=== PATIENT | female | born 1940 | race Hispanic/Latino ===

== ENCOUNTER 2018-03-15 19:10 | Inpatient (IN) | payer MEDICARE ==
[~2018-03-15] VITALS: Ht 152.4 cm; Wt 56.2 kg
[~2018-03-15 19:10] MED LIST: ALPR0.5T8 PO; CARV6.25 PO; CITA10TA7 PO; CYAN100099 PO; ESTR0.452 PO; FLUT15.88 NS; FOLI1TAB15 PO; GABA-531 PO; LEVO25TA9 PO; LEVO50TA4 PO; LOSA100T29 PO; MIRA50TA PO; MULT-1278 PO; NITR0.4T50 SL; OMEG-125 PO; POTA20TA12 PO; PROP1DRO OP; RANI150T7 PO; ROSU5TAB11 PO; SOLI5 PO; TRAM50TA4 PO; TRAV2.5D OU
[2018-03-15 20:01] LABS: APPEARANCE,URINE Clear (CLEAR); BILIRUBIN,URINE Negative (NEGATIVE); COLOR,URINE Yellow (YELLOW); GLUCOSE, URINE (UA) Negative (NEGATIVE); KETONES,URINE 15 mg/dL (NEGATIVE); LEUKOCYTE ESTERASE ,URINE Negative (NEGATIVE); NITRATE,URINE Negative (NEGATIVE); OCCULT BLOOD,URINE Nonhemolyzed Trace (NEGATIVE); PROTEIN,URINE POS 1+ (NEGATIVE); UROBILINOGEN,URINE 0.2 mg/dL (0.2-1.0)
[2018-03-15 20:13] LABS: BACTERIA,URINE None Seen /HPF (None Seen); RBC,URINE 0-1 /HPF (0-1); WBC,URINE 0-1 /HPF (0-1)
[2018-03-15 20:14] LABS: BASOPHILS % (AUTO) 0.3 % (0.0-5.0); EOSINOPHILS % (AUTO) 0.3 % (0.0-8.0); HEMATOCRIT 37.6 % (36-48); LYMPHOCYTES % (AUTO) 13.3 % (21.0-51.0); MEAN CORPUSCULAR HEMOGLOBIN 32.9 pg (27.0-33.0); MEAN CORPUSCULAR HGB CONC 36.3 g/dL (32.0-36.0); MEAN CORPUSCULAR VOLUME 90.6 fL (79-99); MONOCYTES % (AUTO) 6.9 % (3.0-13.0); NEUTROPHILS % (AUTO) 79.2 % (40.0-77.0); NUCLEATED RED BLOOD CELLS 0.1 % (0.0-0.19); PLATELET COUNT (AUTO) 279 K/uL (130-400); RED BLOOD CELL COUNT(AUTO) 4.15 MIL/uL (4.00-5.50); RED CELL DISTRIBUTION WIDTH 13.8 % (11.0-15.5); WHITE BLOOD COUNT (AUTO) 12.4 K/uL (4.8-10.8)
[2018-03-15] MEDS ORDERED: ONDANSETRON ODT 4 MG TAB ONE (20:14)
[2018-03-15 20:39] LABS: ALANINE AMINOTRANSFERASE 28 U/L (12-78); ALBUMIN 3.9 g/dL (3.5-5.0); AMYLASE 67 U/L (25-115); ASPARTATE AMINOTRANSFERASE 25 U/L (10-37); BILIRUBIN,TOTAL 1.8 mg/dL (0.2-1.0); CARBON DIOXIDE 27 mmol/L (21-32); CREATININE 0.7 mg/dL (0.5-1.5); GLOMERULAR FILTR. RATE CALC 86 mL/min (>60); GLUCOSE,RANDOM 118 mg/dL (70-105); SODIUM SERUM 118 mmol/L (136-145); TOTAL PROTEIN, SERUM 7.6 g/dL (6.0-8.3); UREA NITROGEN, BLOOD 8 mg/dL (7-18)
[2018-03-15 20:41] LABS: CHLORIDE 82 mmol/L (101-111); LIPASE < 50 U/L (114-286)
[2018-03-15] MEDS ORDERED: SODIUM CHLORIDE 0.9% 1000ML 1,000 ML IV ONE (20:58)
[2018-03-15 22:25] VITALS: BP 140/78
[2018-03-15] MEDS ORDERED: ONDANSETRON HCL MDV 20ML 2 MG/ML VIAL IVP PRN (23:30)
[2018-03-15] MEDS: SODIUM CHLORIDE 0.9% 1000ML 1,000 ML IV SCH (23:30)
[2018-03-16 04:09] LABS: HEMATOCRIT 39.3 % (36-48); MEAN CORPUSCULAR HEMOGLOBIN 32.2 pg (27.0-33.0); PLATELET COUNT (AUTO) 215 K/uL (130-400); RED BLOOD CELL COUNT(AUTO) 4.28 MIL/uL (4.00-5.50); RED CELL DISTRIBUTION WIDTH 14.1 % (11.0-15.5); WHITE BLOOD COUNT (AUTO) 9.3 K/uL (4.8-10.8)
[2018-03-16 04:16] VITALS: BP 119/75
[2018-03-16 05:26] LABS: ALBUMIN 3.4 g/dL (3.5-5.0); BILIRUBIN,TOTAL 1.4 mg/dL (0.2-1.0); CREATININE 0.6 mg/dL (0.5-1.5); POTASSIUM 3.9 mmol/L (3.5-5.1); TOTAL PROTEIN, SERUM 6.9 g/dL (6.0-8.3)
[2018-03-16 08:00] VITALS: BP 135/69
[2018-03-16] MEDS ORDERED: PANTOPRAZOLE SODIUM 40 MG TABLET.DR PO SCH (09:00)
[2018-03-16] MEDS: SODIUM CHLORIDE 0.9% 1000ML 1,000 ML IV SCH (09:04)
[2018-03-16 11:00] VITALS: BP 130/78
[2018-03-16 16:00] VITALS: BP 141/67
== END 2018-03-16 18:55 | disposition home or self-care (01) | DRG 641 ==
LOC: EDH 19:10 → EDHIP 21:20 → 3AH 22:03 → 3BH 22:03
PROVIDERS: ADMIT Internal Medicine Nephrology; ATTEND Internal Medicine Nephrology
DX: E87.1 Hypo-osmolality and hyponatremia (principal); K76.0 Fatty (change of) liver, not elsewhere classified; E03.9 Hypothyroidism, unspecified; E78.5 Hyperlipidemia, unspecified; M19.90 Unspecified osteoarthritis, unspecified site; I10 Essential (primary) hypertension; M81.0 Age-related osteoporosis without current pathological fracture; Z90.710 Acquired absence of both cervix and uterus; Z86.010 Personal history of colon polyps; Z88.0 Allergy status to penicillin; Z88.8 Allergy status to other drugs, medicaments and biological substances; Z82.49 Family history of ischemic heart disease and other diseases of the circulatory system; Z82.3 Family history of stroke
CPT/HCPCS: 36415; 74021; 80053; 81001; 82150; 83690; 84295; 84484; 85025; 85027; G0378; J7030

== ENCOUNTER 2018-12-02 19:40 | Inpatient (IN) | payer MEDICARE | END 2018-12-04 15:00 | disposition home or self-care (01) | LOC: EDH 19:40 → 3BH 12-03 17:44 → EDHIP 21:50 | DX: E86.0 Dehydration (principal); E87.1 Hypo-osmolality and hyponatremia ==

== ENCOUNTER 2019-09-01 19:55 | Inpatient (IN) | payer MEDICARE ==
[~2019-09-01] VITALS: Ht 154.9 cm; Wt 54.4 kg
[~2019-09-01 19:55] MED LIST changes: -CITA10TA7 PO; +FLUT15.845 NS; -FLUT15.88 NS; -LOSA100T29 PO; +LOSA100T58 PO; -ROSU5TAB11 PO; +ROSU5TAB12 PO
[2019-09-01] MEDS ORDERED: LIDOCAINE HCL 2% VISCOUS 15 ML UDCUP ONE ×2 (20:32→22:29)
[2019-09-01] MEDS ORDERED: MAG HYDROX/AL HYDROX/SIMETH ES 30 ML SUSP UDCUP ONE ×2 (20:32→22:29)
[2019-09-01 20:36] LABS: BASOPHILS % (AUTO) 0.6 % (0.0-5.0); EOSINOPHILS % (AUTO) 0.1 % (0.0-8.0); HEMATOCRIT 50.2 % (36-48); MEAN CORPUSCULAR HEMOGLOBIN 31.7 pg (27.0-33.0); MEAN CORPUSCULAR HGB CONC 33.9 g/dL (32.0-36.0); MEAN CORPUSCULAR VOLUME 93.6 fL (79-99); MONOCYTES % (AUTO) 7.2 % (3.0-13.0); NEUTROPHILS % (AUTO) 75.1 % (40.0-77.0); PLATELET COUNT (AUTO) 228 K/uL (130-400); RED BLOOD CELL COUNT(AUTO) 5.36 MIL/uL (4.00-5.50); RED CELL DISTRIBUTION WIDTH 15.3 % (11.0-15.5); WHITE BLOOD COUNT (AUTO) 11.7 K/uL (4.8-10.8)
[2019-09-01 20:50] LABS: INR 0.95 (0.85-1.15); PARTIAL THROMBOPLASTIN TIME 24.4 SEC (26.3-35.5)
[2019-09-01 20:54] LABS: CREATININE 1.1 mg/dL (0.5-1.5); POTASSIUM 4.6 mmol/L (3.5-5.1)
[2019-09-01 20:59] LABS: ALBUMIN 4.8 g/dL (3.5-5.0); BILIRUBIN,TOTAL 1.4 mg/dL (0.2-1.0); TOTAL PROTEIN, SERUM 8.9 g/dL (6.0-8.3)
[2019-09-01 21:11] LABS: B-TYPE NATRIURETIC PEPTIDE 31 pg/mL (0-100)
[2019-09-02] MEDS ORDERED: SODIUM CHLORIDE 0.9% 1000ML 1,000 ML IV ONE (01:01)
[2019-09-02] MEDS ORDERED: ACETAMINOPHEN 325 MG TAB ONE (01:25)
[2019-09-02] MEDS: SODIUM CHLORIDE 0.9% 1000ML 1,000 ML IV SCH ×2 (03:00→13:31)
[2019-09-02 04:00] VITALS: BP 146/68
[2019-09-02 05:18] LABS: POTASSIUM 4.1 mmol/L (3.5-5.1)
[2019-09-02 05:31] LABS: ALBUMIN 4.4 g/dL (3.5-5.0); BILIRUBIN,TOTAL 1.5 mg/dL (0.2-1.0); TOTAL PROTEIN, SERUM 8.5 g/dL (6.0-8.3)
[2019-09-02 05:53] LABS: HEMATOCRIT 49.4 % (36-48); MEAN CORPUSCULAR HGB CONC 34.3 g/dL (32.0-36.0); MEAN CORPUSCULAR VOLUME 93.4 fL (79-99); PLATELET COUNT (AUTO) 208 K/uL (130-400); RED BLOOD CELL COUNT(AUTO) 5.29 MIL/uL (4.00-5.50); WHITE BLOOD COUNT (AUTO) 10.1 K/uL (4.8-10.8)
[2019-09-02 07:00] VITALS: BP 135/77
[2019-09-02] MEDS ORDERED: PNEUMOCOCCAL VACCINE POLYVALENT 0.5 ML/VIAL [PPV] IM ONE (08:00)
[2019-09-02] MEDS: **HM** MYRBETRIQ 50MG PO SCH (09:00)
[2019-09-02] MEDS: PANTOPRAZOLE SODIUM 40 MG TABLET.DR PO SCH (09:13)
[2019-09-02] MEDS: ALPRAZOLAM 0.5 MG TABLET PO SCH ×3 (09:13→22:12)
[2019-09-02] MEDS: CYANOCOBALAMIN (VITAMIN B-12) 1,000 MCG TABLET PO SCH (09:13)
[2019-09-02] MEDS: CARVEDILOL 6.25 MG TABLET PO SCH ×2 (09:13→22:13)
[2019-09-02] MEDS: FOLIC ACID 1 MG TABLET PO SCH (09:14)
[2019-09-02] MEDS: ACETAMINOPHEN 325 MG TAB PO PRN (09:17)
[2019-09-02] MEDS: LEVOTHYROXINE 25 MCG TABLET PO SCH (09:29)
[2019-09-02] MEDS: ARTIFICAL TEARS SOL 15 ML OP SCH ×2 (09:29→20:38)
[2019-09-02 12:00] VITALS: BP 121/70
--- NOTE | 2019-09-02 14:00 | NUR ---
INITIAL MET W PT , PARTNER DARRYL, BROTHER AND SISTER/ PT AAO3, INDP OF ADLS, DRIVES, NO DME, HOME SAFE AND ACCESSIBLE, LIVE W PARTNER DARRYL WHO WILL PROVIDE TRANSPORT HOME; DCP IS HOME, NO NEEDS ANTICIPATED. SBO DX, STILL NPO BUT WITHOUT NGT Addendum: 09/02/19 at 2004 by BECKIE DAMON RN CM Amended: Links added.
[2019-09-02 16:00] VITALS: BP 120/67
[2019-09-02 19:35] VITALS: BP 146/63
[2019-09-02] MEDS: ONDANSETRON HCL 4 MG/2 ML VIAL IVP PRN (20:31)
[2019-09-02] MEDS: LATANOPROST 2.5 ML DROPS OU SCH (22:11)
[2019-09-02] MEDS: FLUTICASONE PROPIONATE 50MCG/SPRAY 16 GM BOTTLE EN SCH (22:12)
[2019-09-02] MEDS: GABAPENTIN 300 MG CAPSULE PO SCH (22:13)
[2019-09-03] VITALS (7 sets, daily range): BP systolic 113–146; BP diastolic 50–69
[2019-09-03] MEDS: SODIUM CHLORIDE 0.9% 1000ML 1,000 ML IV SCH ×2 (00:41→08:21)
[2019-09-03] MEDS: ACETAMINOPHEN 325 MG TAB PO PRN ×2 (00:42→14:53)
[2019-09-03 04:32] LABS: HEMATOCRIT 41.3 % (36-48); MEAN CORPUSCULAR HEMOGLOBIN 32.1 pg (27.0-33.0); MEAN CORPUSCULAR HGB CONC 34.3 g/dL (32.0-36.0); MEAN CORPUSCULAR VOLUME 93.8 fL (79-99); PLATELET COUNT (AUTO) 176 K/uL (130-400); RED CELL DISTRIBUTION WIDTH 15.1 % (11.0-15.5); WHITE BLOOD COUNT (AUTO) 4.5 K/uL (4.8-10.8)
[2019-09-03 04:47] LABS: ALBUMIN 3.3 g/dL (3.5-5.0); BILIRUBIN,TOTAL 1.5 mg/dL (0.2-1.0); CREATININE 1.2 mg/dL (0.5-1.5); POTASSIUM 3.7 mmol/L (3.5-5.1); TOTAL PROTEIN, SERUM 7.2 g/dL (6.0-8.3)
[2019-09-03 05:11] LABS: BAND NEUTROPHILS % (MANUAL) 22 % (0-2); EOSINOPHILS % (MANUAL) 1 % (1-6); LYMPHOCYTES % (MANUAL) 38 % (22-44); MAN.DIFF COMMENT-IMPRESSION MANUAL DIFFERENTIAL; MONOCYTES % (MANUAL) 6 % (2-9); PLATELET MORPHOLOGY COMMENT ADEQUATE; REACTIVE LYMPHOCYTES 2 % (0-0); SEGMENTED NEUTROPHILS % 31 % (40-70)
[2019-09-03] MEDS: LEVOTHYROXINE 25 MCG TABLET PO SCH (06:56)
[2019-09-03] MEDS: LEVOTHYROXINE 50 MCG TABLET PO SCH (08:19)
[2019-09-03] MEDS: PANTOPRAZOLE SODIUM 40 MG TABLET.DR PO SCH (08:19)
[2019-09-03] MEDS: CYANOCOBALAMIN (VITAMIN B-12) 1,000 MCG TABLET PO SCH (08:19)
[2019-09-03] MEDS: ALPRAZOLAM 0.5 MG TABLET PO SCH ×3 (08:19→20:51)
[2019-09-03] MEDS: FOLIC ACID 1 MG TABLET PO SCH (08:19)
[2019-09-03] MEDS: **HM** MYRBETRIQ 50MG PO SCH (08:20)
[2019-09-03] MEDS: CARVEDILOL 6.25 MG TABLET PO SCH ×2 (08:20→20:51)
[2019-09-03] MEDS: ARTIFICAL TEARS SOL 15 ML OP SCH ×2 (08:21→20:52)
[2019-09-03] MEDS: ONDANSETRON HCL 4 MG/2 ML VIAL IVP PRN (08:28)
[2019-09-03] MEDS: DOXYCYCLINE 100MG+NS 250ML 250 ML IV SCH (12:47)
--- NOTE | 2019-09-03 17:27 | NUR ---
INITIAL: Met w pt this afternoon to discuss dcp. Pt states that she lives alone. She is independent w ambulation and ADLs. Per pt she was driving prior to admission. Pt has at home a cane and walker if needed. Per pt if she needs any help @ hi her life partner Jhon can assist. Pt mentions she feels safe and comfortable to return home at hi. CM to continue to follow and wait for Md recommendations. Addendum: 09/04/19 at 1728 by NAVEEN MATUTE Amended: Links added.
[2019-09-03] MEDS: GABAPENTIN 300 MG CAPSULE PO SCH (20:51)
[2019-09-03] MEDS: LATANOPROST 2.5 ML DROPS OU SCH (20:52)
[2019-09-03] MEDS: FLUTICASONE PROPIONATE 50MCG/SPRAY 16 GM BOTTLE EN SCH (20:53)
[2019-09-04] MEDS: DOXYCYCLINE 100MG+NS 250ML 250 ML IV SCH ×2 (01:06→12:04)
[2019-09-04] MEDS: ACETAMINOPHEN 325 MG TAB PO PRN ×2 (01:55→08:12)
[2019-09-04 03:00] VITALS: BP 112/52
[2019-09-04] MEDS: SODIUM CHLORIDE 0.9% 1000ML 1,000 ML IV SCH (06:39)
[2019-09-04 06:40] LABS: CREATININE 0.8 mg/dL (0.5-1.5); POTASSIUM 3.6 mmol/L (3.5-5.1)
[2019-09-04 06:44] LABS: PHOSPHORUS 1.6 mg/dL (2.5-4.9)
[2019-09-04 08:00] VITALS: BP 139/67
[2019-09-04] MEDS: LEVOTHYROXINE 25 MCG TABLET PO SCH (08:09)
[2019-09-04] MEDS: PANTOPRAZOLE SODIUM 40 MG TABLET.DR PO SCH (08:10)
[2019-09-04] MEDS: CARVEDILOL 6.25 MG TABLET PO SCH ×2 (08:10→20:38)
[2019-09-04] MEDS: CYANOCOBALAMIN (VITAMIN B-12) 1,000 MCG TABLET PO SCH (08:10)
[2019-09-04] MEDS: ALPRAZOLAM 0.5 MG TABLET PO SCH ×3 (08:10→20:36)
[2019-09-04] MEDS: FOLIC ACID 1 MG TABLET PO SCH (08:10)
[2019-09-04] MEDS: ARTIFICAL TEARS SOL 15 ML OP SCH ×2 (08:11→20:35)
[2019-09-04] MEDS: **HM** MYRBETRIQ 50MG PO SCH (08:11)
[2019-09-04 09:05] LABS: ALBUMIN 2.6 g/dL (3.5-5.0); BILIRUBIN,DIRECT 0.3 mg/dL (0.0-0.3); BILIRUBIN,TOTAL 1.2 mg/dL (0.2-1.0); TOTAL PROTEIN, SERUM 6.3 g/dL (6.0-8.3)
[2019-09-04 11:00] VITALS: BP 133/67
--- NOTE | 2019-09-04 12:00 | NUR ---
DR SANTINO BELL MD REGARDING BS OF 66 WELL PAIN LEVEL OF 10 NOT COVERED BY TYLENOL. PER NEW ORDER FOR TRAMADOL 50 Q6 PRN AND D5+NS AT 70ML/HR
[2019-09-04] MEDS: TRAMADOL HCL 50 MG TABLET PO PRN ×2 (12:58→21:40)
[2019-09-04] MEDS: DEXTROSE 5 % AND 0.9 % NACL 1,000 ML IV SCH (12:59)
[2019-09-04 16:00] VITALS: BP 123/80
[2019-09-04 20:29] VITALS: BP 128/57
[2019-09-04] MEDS: FLUTICASONE PROPIONATE 50MCG/SPRAY 16 GM BOTTLE EN SCH (20:33)
[2019-09-04] MEDS: LATANOPROST 2.5 ML DROPS OU SCH (20:34)
[2019-09-04] MEDS: GABAPENTIN 300 MG CAPSULE PO SCH (20:36)
[2019-09-04 23:18] VITALS: BP 137/62
[2019-09-05] MEDS: DOXYCYCLINE 100MG+NS 250ML 250 ML IV SCH ×3 (01:00→21:44)
[2019-09-05] MEDS: TRAMADOL HCL 50 MG TABLET PO PRN ×2 (03:31→10:06)
[2019-09-05 03:42] VITALS: BP 140/62
[2019-09-05 05:06] LABS: BASOPHILS % (AUTO) 0.3 % (0.0-5.0); HEMATOCRIT 35.1 % (36-48); LYMPHOCYTES % (AUTO) 21.6 % (21.0-51.0); MEAN CORPUSCULAR HEMOGLOBIN 32.5 pg (27.0-33.0); MEAN CORPUSCULAR VOLUME 92.7 fL (79-99); MONOCYTES % (AUTO) 12.3 % (3.0-13.0); NEUTROPHILS % (AUTO) 62.8 % (40.0-77.0); NUCLEATED RED BLOOD CELLS 0.1 % (0.0-0.19); PLATELET COUNT (AUTO) 169 K/uL (130-400); RED BLOOD CELL COUNT(AUTO) 3.79 MIL/uL (4.00-5.50); RED CELL DISTRIBUTION WIDTH 14.5 % (11.0-15.5); WHITE BLOOD COUNT (AUTO) 4.8 K/uL (4.8-10.8)
[2019-09-05 05:21] LABS: ALBUMIN 2.4 g/dL (3.5-5.0); BILIRUBIN,TOTAL 0.7 mg/dL (0.2-1.0); CREATININE 0.6 mg/dL (0.5-1.5); POTASSIUM 3.4 mmol/L (3.5-5.1); TOTAL PROTEIN, SERUM 6.1 g/dL (6.0-8.3)
[2019-09-05] MEDS: DEXTROSE 5 % AND 0.9 % NACL 1,000 ML IV SCH ×2 (06:26→15:10)
[2019-09-05] MEDS ORDERED: POTASSIUM CHLORIDE 10 MEQ/TAB.SA PO SCH (07:45)
[2019-09-05] MEDS: ALPRAZOLAM 0.5 MG TABLET PO SCH ×3 (07:49→21:45)
[2019-09-05] MEDS: CYANOCOBALAMIN (VITAMIN B-12) 1,000 MCG TABLET PO SCH (07:49)
[2019-09-05] MEDS: PANTOPRAZOLE SODIUM 40 MG TABLET.DR PO SCH (07:49)
[2019-09-05] MEDS: LEVOTHYROXINE 50 MCG TABLET PO SCH (07:49)
[2019-09-05] MEDS: CARVEDILOL 6.25 MG TABLET PO SCH ×2 (07:50→21:45)
[2019-09-05] MEDS: ARTIFICAL TEARS SOL 15 ML OP SCH ×2 (07:50→21:47)
[2019-09-05] MEDS: **HM** MYRBETRIQ 50MG PO SCH (07:50)
[2019-09-05] MEDS: FOLIC ACID 1 MG TABLET PO SCH (07:50)
[2019-09-05 08:00] VITALS: BP 137/74
--- NOTE | 2019-09-05 10:34 | NUR ---
TELEPHONE CONSENT RECEIVED CALL PLACED TO [facility]OT[facility] VALVERDE/SISTER REGARDING CONSENT FOR ABD PARACENTESIS. CONSENT RECEIVED WITH WITNESS Trudy NIXON RN. Addendum: 09/05/19 at 1651 by SHRUTHI FRANKLIN RN RN ENTERED IN ERROR. PLS DISREGARD
[2019-09-05 12:00] VITALS: BP 146/75
[2019-09-05 16:00] VITALS: BP 142/63
--- NOTE | 2019-09-05 17:00 | NUR ---
LARGE BM LARGE BMX 2 NOTED. DIARRHEA/LOOSE STOOL IN TOILET NOTED X 2. PT STATES FEELING OF RELIEF. NG TUBE CONNECTED TO LIS DRAINED 300CC THIS SHIFT. BOWEL SOUND HYPOACTIVE IN ALL 4 QUDRANTS. PT HAS NO C/O PAIN. WILL CONT TO MONITOR
[2019-09-05 19:45] VITALS: BP 132/67
[2019-09-05] MEDS: GABAPENTIN 300 MG CAPSULE PO SCH (21:46)
[2019-09-05] MEDS: FLUTICASONE PROPIONATE 50MCG/SPRAY 16 GM BOTTLE EN SCH (21:47)
[2019-09-05] MEDS: LATANOPROST 2.5 ML DROPS OU SCH (21:47)
[2019-09-05 23:47] VITALS: BP 121/54
[2019-09-06] MEDS: DEXTROSE 5 % AND 0.9 % NACL 1,000 ML IV SCH ×2 (02:00→17:36)
[2019-09-06 04:33] VITALS: BP 130/59
[2019-09-06 05:48] LABS: BASOPHILS % (AUTO) 0.2 % (0.0-5.0); EOSINOPHILS % (AUTO) 3.2 % (0.0-8.0); HEMATOCRIT 32.5 % (36-48); LYMPHOCYTES % (AUTO) 26.9 % (21.0-51.0); MEAN CORPUSCULAR HGB CONC 34.9 g/dL (32.0-36.0); MEAN CORPUSCULAR VOLUME 91.8 fL (79-99); MONOCYTES % (AUTO) 10.2 % (3.0-13.0); NEUTROPHILS % (AUTO) 59.5 % (40.0-77.0); PLATELET COUNT (AUTO) 176 K/uL (130-400); RED BLOOD CELL COUNT(AUTO) 3.54 MIL/uL (4.00-5.50); RED CELL DISTRIBUTION WIDTH 14.8 % (11.0-15.5); WHITE BLOOD COUNT (AUTO) 5.8 K/uL (4.8-10.8)
[2019-09-06 06:08] LABS: CREATININE 0.5 mg/dL (0.5-1.5)
--- NOTE | 2019-09-06 06:12 | NUR ---
NOTE DR. DE HERE TO SEE PATIENT. UPDATED ON PATIENT CONTINUES WITH NGT, BUT NOW PASSING GAS AND HAD STOOLS. NO NEW ORDERS RECEIVED AT THIS TIME.
[2019-09-06 06:16] LABS: POTASSIUM 2.8 mmol/L (3.5-5.1)
[2019-09-06 07:00] VITALS: BP 122/60
[2019-09-06] MEDS: CYANOCOBALAMIN (VITAMIN B-12) 1,000 MCG TABLET PO SCH (08:20)
[2019-09-06] MEDS: CARVEDILOL 6.25 MG TABLET PO SCH ×2 (08:21→20:33)
[2019-09-06] MEDS: PANTOPRAZOLE SODIUM 40 MG TABLET.DR PO SCH (08:21)
[2019-09-06] MEDS: LEVOTHYROXINE 25 MCG TABLET PO SCH (08:21)
[2019-09-06] MEDS: **HM** MYRBETRIQ 50MG PO SCH (08:21)
[2019-09-06] MEDS: FOLIC ACID 1 MG TABLET PO SCH (08:21)
[2019-09-06] MEDS: ARTIFICAL TEARS SOL 15 ML OP SCH ×2 (08:21→20:35)
[2019-09-06] MEDS: ALPRAZOLAM 0.5 MG TABLET PO SCH ×3 (08:21→20:34)
[2019-09-06] MEDS ORDERED: POTASSIUM CHLORIDE 10% ELIXIR 20 MEQ/15 ML UDCUP PO PRN (09:30)
[2019-09-06] MEDS ORDERED: LIDOCAINE HCL-MPF 1% 2ML VIAL IV PRN (09:30)
[2019-09-06] MEDS ORDERED: POTASSIUM CHLORIDE 20MEQ/100ML 100 ML IV PRN (09:30)
--- NOTE | 2019-09-06 10:30 | NUR ---
NGTUBE REMOVAL NG TUBE 14FR REMOVED AT THIS TIME PER MD ORDER. INTACT AND REMOVED WITH NO RESISTANCE. PT TOLERATED WELL. WILL CONT TO MONITOR
[2019-09-06 12:38] VITALS: BP 131/67
[2019-09-06] MEDS: DOXYCYCLINE 100MG+NS 250ML 250 ML IV SCH ×2 (12:39→23:51)
[2019-09-06] MEDS: TRAMADOL HCL 50 MG TABLET PO PRN ×2 (12:47→18:23)
[2019-09-06 16:00] VITALS: BP 141/72
--- NOTE | 2019-09-06 16:36 | NUR ---
DC PLAN REMAINS TO HOME Addendum: 09/06/19 at 1637 by BECKIE DAMON RN CM Amended: Links added.
[2019-09-06 20:01] VITALS: BP 159/74
[2019-09-06] MEDS: GABAPENTIN 300 MG CAPSULE PO SCH (20:34)
[2019-09-06] MEDS: LATANOPROST 2.5 ML DROPS OU SCH (20:35)
[2019-09-06] MEDS: FLUTICASONE PROPIONATE 50MCG/SPRAY 16 GM BOTTLE EN SCH (20:36)
[2019-09-06] MEDS: POTASSIUM CHLORIDE 20 MEQ ERTAB PO PRN (22:37)
[2019-09-06 23:36] VITALS: BP 152/75
[2019-09-07] MEDS: POTASSIUM CHLORIDE 20 MEQ ERTAB PO PRN ×4 (00:05→11:53)
[2019-09-07 03:47] VITALS: BP 136/64
[2019-09-07 05:19] LABS: ALBUMIN 2.2 g/dL (3.5-5.0); BILIRUBIN,TOTAL 0.5 mg/dL (0.2-1.0); CREATININE 0.5 mg/dL (0.5-1.5); POTASSIUM 3.2 mmol/L (3.5-5.1); TOTAL PROTEIN, SERUM 5.5 g/dL (6.0-8.3)
[2019-09-07] MEDS: DEXTROSE 5 % AND 0.9 % NACL 1,000 ML IV SCH ×2 (07:10→09:55)
--- NOTE | 2019-09-07 07:20 | NUR ---
NOTE DR. DE HERE TO SEE PATIENT. REPORT GIVEN. TOLERATING DIET. POTASSIUM 3.2 TODAY. HAS HYPOKALEMIA PROTOCOL. NO NEW ORDERS RECEIVED.
[2019-09-07 08:00] VITALS: BP 167/79
[2019-09-07] MEDS: ARTIFICAL TEARS SOL 15 ML OP SCH ×2 (08:33→22:04)
[2019-09-07] MEDS: **HM** MYRBETRIQ 50MG PO SCH (08:33)
[2019-09-07] MEDS: CYANOCOBALAMIN (VITAMIN B-12) 1,000 MCG TABLET PO SCH (08:38)
[2019-09-07] MEDS: PANTOPRAZOLE SODIUM 40 MG TABLET.DR PO SCH (08:38)
[2019-09-07] MEDS: CARVEDILOL 6.25 MG TABLET PO SCH ×2 (08:38→22:00)
[2019-09-07] MEDS: LEVOTHYROXINE 50 MCG TABLET PO SCH (08:39)
[2019-09-07] MEDS: FOLIC ACID 1 MG TABLET PO SCH (08:39)
[2019-09-07] MEDS: ALPRAZOLAM 0.5 MG TABLET PO SCH ×3 (08:39→22:00)
[2019-09-07] MEDS: TRAMADOL HCL 50 MG TABLET PO PRN (11:53)
[2019-09-07 12:07] VITALS: BP 137/63
[2019-09-07] MEDS: DOXYCYCLINE 100MG+NS 250ML 250 ML IV SCH (12:39)
--- NOTE | 2019-09-07 15:56 | NUR ---
RD NOTIFICATION DX: SMALL BOWEL OBSTRUCTION. DIET: FULL LIQUIDS. PT TOLERATING FULL LIQUIDS WELL PER PT. PO INTAKE 50% AND CLAIMS TO HAVE STEADY APPETITE. ABDOMINAL PAIN IMPROVING. PT HAVING DIARRHEA PRIOR TO ADMISSION, DIARRHEA IS NOW RESOLVED. PT HAS A HISTORY OF CONSTIPATION AND DIARRHEA IN THE PAST. PT CANNOT TOLERATE SPICY FOODS, NOR FOODS HIGH IN FAT, PER PT. PT ASKED FOR EDUCATION HANDOUTS REGARDING DIVERTICULITIS DIET AND NUTRITION. PENDING EDUCATION. PT ASLEEP DURING TIME OF VISIT TO PROVIDE EDUCATION, RD WILL FOLLOW UP TOMORROW TO PROVIDE NUTRITION EDUCATION MATERIAL. RD RECOMMENDS TO CONTINUE CURRENT DIET. ADVANCE DIET TOLERATED WHEN MEDICALLY FEASIBLE TO GI SOFT/ BLAND, LOW FAT, AND LOW FIBER DIET. SLOWLY INCREASE TO HIGH FIBER. RD WILL FOLLOW UP WITH PT TOMORROW REGARDING DIET AND NUTRITION EDUCATION. RD WILL CONTINUE TO MONITOR. THANK YOU. Addendum: 09/07/19 at [address] RD Amended: Links added.
[2019-09-07 16:42] VITALS: BP 133/60
[2019-09-07 20:00] VITALS: BP 142/72
[2019-09-07] MEDS: GABAPENTIN 300 MG CAPSULE PO SCH (22:00)
[2019-09-07] MEDS: LATANOPROST 2.5 ML DROPS OU SCH (22:04)
[2019-09-07] MEDS: FLUTICASONE PROPIONATE 50MCG/SPRAY 16 GM BOTTLE EN SCH (22:05)
[2019-09-08] VITALS: BP 155/82
[2019-09-08] MEDS: DOXYCYCLINE 100MG+NS 250ML 250 ML IV SCH (00:05)
[2019-09-08 04:00] VITALS: BP 125/70
[2019-09-08] MEDS: LEVOTHYROXINE 25 MCG TABLET PO SCH (06:23)
[2019-09-08] MEDS: DEXTROSE 5 % AND 0.9 % NACL 1,000 ML IV SCH (06:27)
[2019-09-08 07:00] VITALS: BP 138/85
[2019-09-08] MEDS: ARTIFICAL TEARS SOL 15 ML OP SCH (09:38)
[2019-09-08] MEDS: **HM** MYRBETRIQ 50MG PO SCH (09:45)
[2019-09-08] MEDS: FOLIC ACID 1 MG TABLET PO SCH (09:49)
[2019-09-08] MEDS: CYANOCOBALAMIN (VITAMIN B-12) 1,000 MCG TABLET PO SCH (09:49)
[2019-09-08] MEDS: ALPRAZOLAM 0.5 MG TABLET PO SCH ×2 (09:49→14:19)
[2019-09-08] MEDS: PANTOPRAZOLE SODIUM 40 MG TABLET.DR PO SCH (09:49)
[2019-09-08] MEDS: CARVEDILOL 6.25 MG TABLET PO SCH (09:50)
[2019-09-08] MEDS: POTASSIUM CHLORIDE 20 MEQ ERTAB PO PRN ×3 (09:53→14:19)
[2019-09-08 11:00] VITALS: BP 130/81
[2019-09-08] MEDS: TRAMADOL HCL 50 MG TABLET PO PRN (12:23)
--- NOTE | 2019-09-08 14:33 | NUR ---
DR CYR ROUNDED/DR DE PAGED DR KLARISSA NATH AT THIS TIME. STATED PT CAN BE DCD FROM HIS STAND POINT. NO FOLLOW UP NECESSARY. PAGED DR DE REGARDING UPDATE. PENDING CALL BACK
--- NOTE | 2019-09-08 15:15 | NUR ---
RD NOTIFICATION/ FOLLOW UP DX: SMALL BOWEL OBSTRUCTION. DIET: GI SOFT/ BLAND, LOW RESIDUE. NO EDEMA, SKIN INTACT. PO INTAKE 100% AND HAS GOOD APPETITE PER PT. PT TOLERATING DIET WELL. ABDOMINAL PAIN IMPROVING. RD PROVIDED DIVERTICULITIS DIET AND NUTRITION EDUCATION. PT ASKED QUESTIONS, RD ANSWERED AND PT VERBALIZED UNDERSTANDING. PT SEEMS TO BE DOING BETTER AND IS MOTIVATED TO CARRY OUT DIETARY RECOMMENDATIONS. RD WILL CONTINUE TO FOLLOW UP NEEDED. THANK YOU. Addendum: 09/08/19 at [address] Amended: Links added.
--- NOTE | 2019-09-08 15:16 | NUR ---
DIET EDUCATION RD PROVIDED DIVERTICULITIS DIET AND NUTRITION EDUCATION. PT ASKED QUESTIONS, RD ANSWERED AND PT VERBALIZED UNDERSTANDING. PT SEEMS TO BE DOING BETTER AND IS MOTIVATED TO CARRY OUT DIETARY RECOMMENDATIONS. Addendum: 09/08/19 at [address] Amended: Links added.
== END 2019-09-08 17:10 | disposition home or self-care (01) | DRG 683 ==
LOC: EDH 19:55 → EDHIP 09-02 00:49 → OBSVTOIN 09-02 00:49 → 3DH 09-02 03:56
PROVIDERS: ADMIT Internal Medicine Nephrology; ATTEND Internal Medicine Nephrology
PROC: 3E0234Z Introduction of Serum, Toxoid and Vaccine into Muscle, Percutaneous Approach (ICD-10-PCS; principal; 2019-09-02)
PROC: 3E02340 Introduction of Influenza Vaccine into Muscle, Percutaneous Approach (ICD-10-PCS; 2019-09-02)
PROC: 0D9670Z Drainage of Stomach with Drainage Device, Via Natural or Artificial Opening (ICD-10-PCS; 2019-09-02)
DX: N17.9 Acute kidney failure, unspecified (principal); K56.600 Partial intestinal obstruction, unspecified as to cause; E83.52 Hypercalcemia; I10 Essential (primary) hypertension; E03.9 Hypothyroidism, unspecified; E78.5 Hyperlipidemia, unspecified; E87.6 Hypokalemia; J01.90 Acute sinusitis, unspecified; M19.90 Unspecified osteoarthritis, unspecified site; M81.0 Age-related osteoporosis without current pathological fracture; Z88.6 Allergy status to analgesic agent; Z88.5 Allergy status to narcotic agent; Z88.0 Allergy status to penicillin; Z88.8 Allergy status to other drugs, medicaments and biological substances; Z90.710 Acquired absence of both cervix and uterus; Z90.49 Acquired absence of other specified parts of digestive tract; Z87.19 Personal history of other diseases of the digestive system; Z23 Encounter for immunization; Z82.3 Family history of stroke; Z82.49 Family history of ischemic heart disease and other diseases of the circulatory system
CPT/HCPCS: 36415; 71045; 74018; 74021; 74176; 76700; 80048; 80053; 80076; 82150; 82550; 82948; 83690; 83735; 83880; 84100; 84132; 84484; 85025; 85027; 85610; 85730; 90732; 93005; C9113; G0378; J2405; J3480; J3490; J7030; J7042

== ENCOUNTER 2019-09-14 10:51 | Inpatient (IN) | payer MEDICARE ==
[~2019-09-14] VITALS: Ht 154.9 cm; Wt 53.5 kg
[2019-09-14 11:14] LABS: BASOPHILS % (AUTO) 0.6 % (0.0-5.0); HEMATOCRIT 43.4 % (36-48); LYMPHOCYTES % (AUTO) 17.2 % (21.0-51.0); MEAN CORPUSCULAR HEMOGLOBIN 31.6 pg (27.0-33.0); MEAN CORPUSCULAR HGB CONC 34.2 g/dL (32.0-36.0); MEAN CORPUSCULAR VOLUME 92.5 fL (79-99); NEUTROPHILS % (AUTO) 76.2 % (40.0-77.0); PLATELET COUNT (AUTO) 337 K/uL (130-400); RED BLOOD CELL COUNT(AUTO) 4.69 MIL/uL (4.00-5.50); RED CELL DISTRIBUTION WIDTH 14.9 % (11.0-15.5); WHITE BLOOD COUNT (AUTO) 11.7 K/uL (4.8-10.8)
[2019-09-14 11:28] LABS: CREATININE 0.8 mg/dL (0.5-1.5); POTASSIUM 4.2 mmol/L (3.5-5.1)
[2019-09-14 11:33] LABS: ALBUMIN 3.9 g/dL (3.5-5.0); TOTAL PROTEIN, SERUM 8.3 g/dL (6.0-8.3)
[2019-09-14] MEDS ORDERED: ONDANSETRON HCL 4 MG/2 ML VIAL ONE (13:53)
[2019-09-14] MEDS ORDERED: SODIUM CHLORIDE 0.9% 1000ML 1,000 ML IV ONE ×2 (13:53→16:34)
[2019-09-14 14:02] LABS: APPEARANCE,URINE TURBID (CLEAR); BILIRUBIN,URINE NEGATIVE (NEGATIVE); COLOR,URINE YELLOW (YELLOW); GLUCOSE, URINE (UA) NEGATIVE (NEGATIVE); KETONES,URINE 5 mg/dL (NEGATIVE); LEUKOCYTE ESTERASE ,URINE NEGATIVE (NEGATIVE); NITRATE,URINE NEGATIVE (NEGATIVE); OCCULT BLOOD,URINE NEGATIVE (NEGATIVE); PH,URINE 5.5 (5.0-8.0); PROTEIN,URINE 30 mg/dL (NEGATIVE); UROBILINOGEN,URINE 0.2 mg/dL (0.2-1.0)
[2019-09-14 14:10] LABS: AMORPHOUS SEDIMENT,UR Many /LPF (None Seen); BACTERIA,URINE Rare /HPF (None Seen); RBC,URINE 0-1 /HPF (0-1); SQUAMOUS EPITHELIAL CELL,UR Rare /HPF (0-2)
[2019-09-14 16:55] VITALS: BP 156/92
--- NOTE | 2019-09-14 18:08 | NUR ---
DR ARIEL BELL REGARDING CONSULT-STATED SHE WILL SEE PT IN MORNING 09/15
[2019-09-14] MEDS: SODIUM CHLORIDE 0.9% 1000ML 1,000 ML IV SCH (18:45)
[2019-09-14] MEDS ORDERED: ONDANSETRON HCL 4 MG/2 ML VIAL IVP PRN (18:45)
[2019-09-14 19:15] VITALS: BP 156/73
[2019-09-14 23:15] VITALS: BP 121/63
--- NOTE | 2019-09-14 23:25 | NUR ---
PAIN MEDICATION: Pt. complaints of pain to abdomen with PS of 06/08. Called Dr. Vivar with an order to give Toradol 30 mg IV q6hrs prn for pain. - carried out.
[2019-09-14] MEDS ORDERED: KETOROLAC TROMETHAMINE 30MG/ML ONE (23:49)
[2019-09-15 04:05] VITALS: BP 104/58
[2019-09-15] MEDS: SODIUM CHLORIDE 0.9% 1000ML 1,000 ML IV SCH ×2 (04:45→20:57)
[2019-09-15 05:59] LABS: HEMATOCRIT 33.1 % (36-48); MEAN CORPUSCULAR HEMOGLOBIN 31.8 pg (27.0-33.0); MEAN CORPUSCULAR HGB CONC 34.1 g/dL (32.0-36.0); MEAN CORPUSCULAR VOLUME 93.2 fL (79-99); PLATELET COUNT (AUTO) 240 K/uL (130-400); RED BLOOD CELL COUNT(AUTO) 3.55 MIL/uL (4.00-5.50); RED CELL DISTRIBUTION WIDTH 14.7 % (11.0-15.5)
[2019-09-15 06:11] LABS: ALBUMIN 2.6 g/dL (3.5-5.0); BILIRUBIN,TOTAL 1.3 mg/dL (0.2-1.0); MAGNESIUM 1.5 mg/dL (1.80-2.40)
--- NOTE | 2019-09-15 06:50 | NUR ---
KATELYNN CALLEJAS rounded: Seen and examined pt with the ff orders: 1. Magnesium 2gms IV x 1 only 2. cbc,cmp and magnesium manjit (09/16/19) - orders carried out. AM nurse made aware.
[2019-09-15] MEDS ORDERED: MAGNESIUM 2GM PREMIX 50ML 50 ML IV SCH (07:15)
[2019-09-15 07:30] VITALS: BP 123/70
[2019-09-15] MEDS: KETOROLAC TROMETHAMINE 30MG/ML IVP PRN ×2 (07:51→14:57)
[2019-09-15] MEDS ORDERED: PANTOPRAZOLE 40 MG/VIAL IVP SCH (09:00)
--- NOTE | 2019-09-15 10:59 | NUR ---
DCP CM met with pt discussed dc plans. Pt is independent prior to admission, lives at home alone, life partner lives close by. Pt has own cane and walker. Denies any other equipments/services. Feels safe to go back home, states her life partner is able to assist with transportations as necessary. DC plan to home once stable. CM to cont to follow up. Addendum: 09/15/19 at 1101 by INNA MARVIN LVN CM Amended: Links added.
[2019-09-15 11:00] VITALS: BP 132/62
[2019-09-15 16:00] VITALS: BP 126/57
[2019-09-15 19:22] VITALS: BP 126/61
[2019-09-15] MEDS ORDERED: METRONIDAZOLE 500MG/100ML BAG 100 ML ONE (20:54)
[2019-09-15] MEDS: METRONIDAZOLE 500MG/100ML BAG 100 ML IV SCH (20:57)
[2019-09-16] VITALS (7 sets, daily range): BP systolic 116–145; BP diastolic 60–74
[2019-09-16] MEDS ORDERED: DEXTROSE 5 % AND 0.9 % NACL 1,000 ML IV ONE (01:13)
[2019-09-16] MEDS ORDERED: DEXTROSE 5 % AND 0.9 % NACL 1,000 ML IV SCH (01:15)
[2019-09-16 04:33] LABS: BASOPHILS % (AUTO) 0.2 % (0.0-5.0); EOSINOPHILS % (AUTO) 0.9 % (0.0-8.0); HEMATOCRIT 31.4 % (36-48); LYMPHOCYTES % (AUTO) 11.9 % (21.0-51.0); MEAN CORPUSCULAR HGB CONC 34.2 g/dL (32.0-36.0); MEAN CORPUSCULAR VOLUME 93.6 fL (79-99); MONOCYTES % (AUTO) 5.2 % (3.0-13.0); NEUTROPHILS % (AUTO) 81.8 % (40.0-77.0); PLATELET COUNT (AUTO) 234 K/uL (130-400); RED BLOOD CELL COUNT(AUTO) 3.36 MIL/uL (4.00-5.50); RED CELL DISTRIBUTION WIDTH 15.2 % (11.0-15.5); WHITE BLOOD COUNT (AUTO) 13.2 K/uL (4.8-10.8)
[2019-09-16 04:56] LABS: ALBUMIN 2.4 g/dL (3.5-5.0); BILIRUBIN,TOTAL 1.2 mg/dL (0.2-1.0); CREATININE 0.6 mg/dL (0.5-1.5); POTASSIUM 3.3 mmol/L (3.5-5.1); TOTAL PROTEIN, SERUM 5.9 g/dL (6.0-8.3)
[2019-09-16] MEDS: METRONIDAZOLE 500MG/100ML BAG 100 ML IV SCH ×3 (06:35→21:12)
[2019-09-16] MEDS: FAMOTIDINE/PF 20 MG/2 ML VIAL IV SCH ×2 (09:53→21:12)
[2019-09-16] MEDS: KETOROLAC TROMETHAMINE 30MG/ML IVP PRN (09:58)
[2019-09-16] MEDS ORDERED: AMLO2.5T4 PO (10:23)
[2019-09-16] MEDS ORDERED: SODI1TAB PO (10:23)
[2019-09-16] MEDS ORDERED: ERGO500014 PO (10:23)
[2019-09-16] MEDS ORDERED: PANT40TA25 PO (10:23)
[2019-09-16] MEDS ORDERED: LEVO50 PO (10:23)
[2019-09-16] MEDS ORDERED: MIRA50TA PO (10:23)
[2019-09-16] MEDS ORDERED: LINA145C PO (10:23)
--- NOTE | 2019-09-16 13:54 | NUR ---
Pt assessed this morning, positive bowls sounds noted in RUQ and RLQ, Pt encourage to ambulate, NG tube still in place with minimal output drainage, Pt up and walking at this time, No SOB noted, Pt tolerated activity well, Nursing will continue to monitor.
[2019-09-16] MEDS ORDERED: PHARMACY COMMUNICATION MISC ONE (14:15)
[2019-09-16] MEDS: D5 NS WITH 20 mEq KCl 1000ML 1,000 ML IV SCH (14:49)
[2019-09-16] MEDS ORDERED: POTASSIUM CHLORIDE 20 MEQ ERTAB PO PRN (20:00)
[2019-09-16] MEDS ORDERED: POTASSIUM CHLORIDE 20MEQ/100ML 100 ML IV PRN (20:00)
[2019-09-16] MEDS ORDERED: LIDOCAINE HCL-MPF 1% 2ML VIAL IV PRN (20:00)
[2019-09-16] MEDS: POTASSIUM CHLORIDE 10% ELIXIR 20 MEQ/15 ML UDCUP PO PRN ×2 (21:12→23:21)
[2019-09-17] MEDS: KETOROLAC TROMETHAMINE 30MG/ML IVP PRN (00:01)
[2019-09-17] MEDS: POTASSIUM CHLORIDE 10% ELIXIR 20 MEQ/15 ML UDCUP PO PRN (02:18)
[2019-09-17 03:00] VITALS: BP 129/58
[2019-09-17] MEDS: D5 NS WITH 20 mEq KCl 1000ML 1,000 ML IV SCH ×3 (04:02→20:14)
[2019-09-17] MEDS: METRONIDAZOLE 500MG/100ML BAG 100 ML IV SCH ×3 (05:30→20:19)
[2019-09-17 07:01] LABS: HEMATOCRIT 29.7 % (36-48); MEAN CORPUSCULAR HEMOGLOBIN 32.5 pg (27.0-33.0); MEAN CORPUSCULAR HGB CONC 34.9 g/dL (32.0-36.0); MEAN CORPUSCULAR VOLUME 93.1 fL (79-99); PLATELET COUNT (AUTO) 243 K/uL (130-400); RED BLOOD CELL COUNT(AUTO) 3.19 MIL/uL (4.00-5.50); RED CELL DISTRIBUTION WIDTH 14.8 % (11.0-15.5); WHITE BLOOD COUNT (AUTO) 7.8 K/uL (4.8-10.8)
[2019-09-17 07:07] LABS: CREATININE 0.6 mg/dL (0.5-1.5)
[2019-09-17 08:00] VITALS: BP 150/76
[2019-09-17 08:27] LABS: PLATELET MORPHOLOGY COMMENT ADEQUATE
[2019-09-17 08:29] LABS: MAN.DIFF COMMENT-IMPRESSION MANUAL DIFFERENTIAL
[2019-09-17 08:32] LABS: EOSINOPHILS % (MANUAL) 2 % (1-6); LYMPHOCYTES % (MANUAL) 26 % (22-44); MONOCYTES % (MANUAL) 4 % (2-9); SEGMENTED NEUTROPHILS % 68 % (40-70)
[2019-09-17] MEDS: FAMOTIDINE/PF 20 MG/2 ML VIAL IV SCH ×2 (09:02→20:13)
[2019-09-17 12:00] VITALS: BP 133/63
[2019-09-17] MEDS: GABAPENTIN 300 MG CAPSULE PO SCH ×2 (14:14→20:19)
[2019-09-17 16:00] VITALS: BP 140/79
[2019-09-17 19:00] VITALS: BP 146/61
[2019-09-17] MEDS: CARVEDILOL 6.25 MG TABLET PO SCH (20:14)
[2019-09-17] MEDS ORDERED: MIRABEGRON 50 MG PO SCH (21:00)
[2019-09-17] MEDS ORDERED: ATORVASTATIN CALCIUM 10 MG TABLET PO SCH (21:00)
[2019-09-17 23:00] VITALS: BP 140/63
[2019-09-18 03:00] VITALS: BP 148/76
[2019-09-18] MEDS: METRONIDAZOLE 500MG/100ML BAG 100 ML IV SCH (04:46)
[2019-09-18 06:04] LABS: HEMATOCRIT 30.1 % (36-48); MEAN CORPUSCULAR HEMOGLOBIN 32.3 pg (27.0-33.0); MEAN CORPUSCULAR HGB CONC 34.9 g/dL (32.0-36.0); MEAN CORPUSCULAR VOLUME 92.6 fL (79-99); PLATELET COUNT (AUTO) 279 K/uL (130-400); RED BLOOD CELL COUNT(AUTO) 3.25 MIL/uL (4.00-5.50); RED CELL DISTRIBUTION WIDTH 15.1 % (11.0-15.5); WHITE BLOOD COUNT (AUTO) 4.9 K/uL (4.8-10.8)
[2019-09-18 06:14] LABS: CREATININE 0.6 mg/dL (0.5-1.5)
[2019-09-18] MEDS ORDERED: PANTOPRAZOLE SODIUM 40 MG TABLET.DR PO SCH (07:30)
[2019-09-18 08:00] VITALS: BP 142/78
[2019-09-18] MEDS: FAMOTIDINE/PF 20 MG/2 ML VIAL IV SCH (08:49)
[2019-09-18] MEDS: CARVEDILOL 6.25 MG TABLET PO SCH (08:49)
[2019-09-18] MEDS: GABAPENTIN 300 MG CAPSULE PO SCH (08:50)
[2019-09-18] MEDS ORDERED: LEVOTHYROXINE 25 MCG TABLET PO SCH (09:00)
[2019-09-18] MEDS ORDERED: CYANOCOBALAMIN (VITAMIN B-12) 1,000 MCG TABLET PO SCH (09:00)
[2019-09-18] MEDS ORDERED: POTASSIUM CHLORIDE 20 MEQ ERTAB PO SCH (09:00)
[2019-09-18] MEDS ORDERED: FOLIC ACID 1 MG TABLET PO SCH (09:00)
[2019-09-18] MEDS ORDERED: AMLODIPINE BESYLATE 2.5 MG TAB PO SCH (09:00)
[2019-09-18] MEDS ORDERED: THERMOTABS PO SCH (09:00)
[2019-09-18] MEDS ORDERED: FISH OIL 1000 MG/CAP PO SCH (09:00)
[2019-09-18 11:27] VITALS: BP 130/66
--- NOTE | 2019-09-18 11:46 | NUR ---
Pt d/c plan Pt's diet advance as tolerated, no episode of nausea or vomiting, no c/o abd pain, pt tolerated diet well, pt to follow up with Dr. Vivar in her office as previously scheduled, to send prescription to pt's RX on file, Pt PIV taken off, no complication noted, Pt discharged on a heart healthy diet, activity as tolerated, Pt verbalized understanding of d/c instruction, all questions and concerns addressed.
[2019-09-19] MEDS ORDERED: LEVOTHYROXINE 50 MCG TABLET PO SCH (09:00)
[2019-09-24] MEDS ORDERED: ERGOCALCIFEROL (VITAMIN D2) 50,000 UNIT CAPSULE PO SCH (09:00)
== END 2019-09-18 12:40 | disposition home or self-care (01) | DRG 390 ==
LOC: EDH 10:51 → EDHIP 14:41 → 3BH 16:28
PROVIDERS: ADMIT Internal Medicine Nephrology; ATTEND Internal Medicine Nephrology
PROC: 0D9670Z Drainage of Stomach with Drainage Device, Via Natural or Artificial Opening (ICD-10-PCS; principal; 2019-09-15)
DX: K56.609 Unspecified intestinal obstruction, unspecified as to partial versus complete obstruction (principal); D64.9 Anemia, unspecified; E86.1 Hypovolemia; E83.52 Hypercalcemia; D72.829 Elevated white blood cell count, unspecified; M19.90 Unspecified osteoarthritis, unspecified site; I10 Essential (primary) hypertension; E03.9 Hypothyroidism, unspecified; E78.5 Hyperlipidemia, unspecified; F41.9 Anxiety disorder, unspecified; M81.0 Age-related osteoporosis without current pathological fracture; Z90.49 Acquired absence of other specified parts of digestive tract; Z87.19 Personal history of other diseases of the digestive system; Z90.710 Acquired absence of both cervix and uterus; Z88.6 Allergy status to analgesic agent; Z88.5 Allergy status to narcotic agent; Z88.0 Allergy status to penicillin; Z88.8 Allergy status to other drugs, medicaments and biological substances; Z82.3 Family history of stroke; Z82.49 Family history of ischemic heart disease and other diseases of the circulatory system
CPT/HCPCS: 36415; 74176; 80048; 80053; 81001; 82948; 83690; 83735; 85025; 85027; C9113; G0378; J1885; J2405; J3475; J3480; J3490; J7030; J7042

== ENCOUNTER 2022-06-02 08:28 | Inpatient (IN) | payer MEDICARE ==
[~2022-06-02] VITALS: Ht 154.9 cm; Wt 50.9 kg
[~2022-06-02 08:28] MED LIST changes: +AMLO2.5T4 PO; +CYCL30DR OU; +ERGO500014 PO; -ESTR0.452 PO; -FLUT15.845 NS; -LEVO25TA9 PO; +LEVO50 PO; +LINA145C PO; -LOSA100T58 PO; -MULT-1278 PO; +NITR0.4T SL; -NITR0.4T50 SL; -OMEG-125 PO; +PANT40TA54 PO; +POTA-193 PO; -POTA20TA12 PO; -PROP1DRO OP; -RANI150T7 PO; -SOLI5 PO; -TRAM50TA4 PO; -TRAV2.5D OU
[2022-06-02 09:09] LABS: BASOPHILS % (AUTO) 0.3 % (0.0-5.0); EOSINOPHILS % (AUTO) 0.6 % (0.0-8.0); HEMATOCRIT 46.1 % (36-48); MEAN CORPUSCULAR HEMOGLOBIN 31.9 pg (27.0-33.0); MEAN CORPUSCULAR HGB CONC 34.5 g/dL (32.0-36.0); MEAN CORPUSCULAR VOLUME 92.4 fL (79-99); MONOCYTES % (AUTO) 5.7 % (3.0-13.0); NEUTROPHILS % (AUTO) 76.2 % (40.0-77.0); PLATELET COUNT (AUTO) 205 K/uL (130-400); RED BLOOD CELL COUNT(AUTO) 4.99 MIL/uL (4.00-5.50); RED CELL DISTRIBUTION WIDTH 13.9 % (11.0-15.5)
[2022-06-02 09:21] LABS: CREATININE 0.7 mg/dL (0.5-1.5); POTASSIUM 3.9 mmol/L (3.5-5.1)
[2022-06-02 09:26] LABS: BILIRUBIN,TOTAL 1.2 mg/dL (0.2-1.0); TOTAL PROTEIN, SERUM 8.2 g/dL (6.0-8.3)
[2022-06-02] MEDS ORDERED: ONDANSETRON 4MG INJ ONE (10:13)
[2022-06-02] MEDS ORDERED: MORPHINE 2 MG SYG ONE (10:13)
[2022-06-02 10:21] LABS: APPEARANCE,URINE CLEAR (CLEAR); BILIRUBIN,URINE NEGATIVE (NEGATIVE); COLOR,URINE YELLOW (YELLOW); GLUCOSE, URINE (UA) NEGATIVE (NEGATIVE); KETONES,URINE 5 mg/dL (NEGATIVE); LEUKOCYTE ESTERASE ,URINE NEGATIVE (NEGATIVE); NITRATE,URINE NEGATIVE (NEGATIVE); OCCULT BLOOD,URINE TRACE-INTACT (NEGATIVE); PH,URINE 6.5 (5.0-8.0); PROTEIN,URINE 100 mg/dL (NEGATIVE)
[2022-06-02 10:24] LABS: BACTERIA,URINE Rare /HPF (None Seen); RBC,URINE 0-1 /HPF (0-1); SQUAMOUS EPITHELIAL CELL,UR Rare /HPF (0-2); WBC,URINE 0-1 /HPF (0-1)
[2022-06-02] MEDS ORDERED: MORPHINE 2 MG SYG IVP ONE (10:30)
[2022-06-02] MEDS ORDERED: ONDANSETRON 4MG INJ IVP ONE (10:30)
[2022-06-02] MEDS ORDERED: LIDOCAINE HCL 2% VISCOUS 15 ML UDCUP ONE (10:55)
[2022-06-02] MEDS ORDERED: LIDOCAINE HCL 2% VISCOUS 15 ML UDCUP PO ONE (11:30)
[2022-06-02] MEDS ORDERED: ACETAMINOPHEN 650 MG SUPPOSITORY RC PRN (11:30)
[2022-06-02] MEDS ORDERED: ONDANSETRON 4MG INJ IVP PRN (11:30)
[2022-06-02] MEDS: DEXTROSE 5 % AND 0.9 % NACL 1,000 ML IV SCH ×2 (11:30→23:37)
[2022-06-02] MEDS: MORPHINE 2 MG SYG IVP PRN ×3 (12:58→20:38)
[2022-06-02] MEDS: HEPARIN 5,000 UNIT VIAL SQ SCH ×2 (13:05→22:02)
[2022-06-02 14:24] VITALS: BP 150/64
[2022-06-02 16:11] VITALS: BP 133/74
[2022-06-02 20:21] VITALS: BP 116/65
[2022-06-02 23:54] VITALS: BP 160/66
[2022-06-03] MEDS: MORPHINE 2 MG SYG IVP PRN ×3 (02:36→14:48)
[2022-06-03 03:38] VITALS: BP 132/69
[2022-06-03 05:25] LABS: HEMATOCRIT 42.3 % (36-48); MEAN CORPUSCULAR HEMOGLOBIN 32.2 pg (27.0-33.0); MEAN CORPUSCULAR VOLUME 92.2 fL (79-99); RED BLOOD CELL COUNT(AUTO) 4.59 MIL/uL (4.00-5.50); RED CELL DISTRIBUTION WIDTH 13.9 % (11.0-15.5); WHITE BLOOD COUNT (AUTO) 6.2 K/uL (4.8-10.8)
[2022-06-03 05:43] LABS: MAGNESIUM 1.7 mg/dL (1.80-2.40); POTASSIUM 3.5 mmol/L (3.5-5.1)
[2022-06-03 08:05] VITALS: BP 126/60
[2022-06-03] MEDS: HEPARIN 5,000 UNIT VIAL SQ SCH ×2 (11:30→22:01)
[2022-06-03 12:00] VITALS: BP 141/70
[2022-06-03] MEDS ORDERED: BENZOCAINE/MENTH/CETYLPYRD CL 1 EACH LOZENGE MM PRN (13:30)
[2022-06-03] MEDS: DEXTROSE 5 % AND 0.9 % NACL 1,000 ML IV SCH (14:10)
[2022-06-03 15:39] VITALS: BP 142/73
[2022-06-03] MEDS ORDERED: KETOROLAC 15MG/ML VIAL (15MG/ML) IV PRN (16:00)
[2022-06-03] MEDS ORDERED: LACTULOSE 20 GM/30 ML UDCUP PO PRN (20:00)
[2022-06-03 20:46] VITALS: BP 135/71
[2022-06-04 00:06] VITALS: BP 153/86
[2022-06-04] MEDS: DEXTROSE 5 % AND 0.9 % NACL 1,000 ML IV SCH (03:19)
[2022-06-04 03:46] VITALS: BP 147/71
[2022-06-04] MEDS: Linaclotide (Linzess) 145 MCG PO SCH (07:30)
[2022-06-04 08:00] VITALS: BP 144/104
[2022-06-04 12:20] VITALS: BP 143/77
[2022-06-04] MEDS: HEPARIN 5,000 UNIT VIAL SQ SCH (13:36)
[2022-06-04 16:07] VITALS: BP 149/74
[2022-06-04] MEDS ORDERED: LIDOCAINE HCL-MPF 1% 2ML VIAL IV PRN (17:30)
[2022-06-04] MEDS ORDERED: MAGNESIUM 2GM PREMIX 50ML 50 ML IV PRN (17:30)
[2022-06-04] MEDS ORDERED: KCL 20 MEQ ERTAB PO PRN (17:30)
[2022-06-04] MEDS ORDERED: POTASSIUM CHLORIDE 10MEQ/100ML 100 ML IV PRN (17:30)
[2022-06-04] MEDS ORDERED: ALPRAZOLAM 0.5 MG TABLET PO PRN (19:30)
[2022-06-04] MEDS: CARVEDILOL 6.25 MG TABLET PO SCH (20:04)
[2022-06-04 20:11] VITALS: BP 153/75
[2022-06-04] MEDS: GABAPENTIN 300 MG CAPSULE PO SCH (20:15)
[2022-06-04] MEDS ORDERED: ATORVASTATIN 10 MG TABLET PO SCH (21:00)
[2022-06-04] MEDS ORDERED: **HM**(Mirabegron (Myrbetriq) 50 MG PO SCH (21:00)
[2022-06-05 00:20] VITALS: BP 125/53
[2022-06-05] MEDS: HEPARIN 5,000 UNIT VIAL SQ SCH ×2 (00:29→12:50)
[2022-06-05 03:44] VITALS: BP 149/70
[2022-06-05 05:11] LABS: HEMATOCRIT 37.3 % (36-48); MEAN CORPUSCULAR HEMOGLOBIN 31.7 pg (27.0-33.0); MEAN CORPUSCULAR VOLUME 96.1 fL (79-99); RED BLOOD CELL COUNT(AUTO) 3.88 MIL/uL (4.00-5.50); RED CELL DISTRIBUTION WIDTH 14.3 % (11.0-15.5); WHITE BLOOD COUNT (AUTO) 6.4 K/uL (4.8-10.8)
[2022-06-05 05:23] LABS: CREATININE 0.7 mg/dL (0.5-1.5); MAGNESIUM 2.3 mg/dL (1.80-2.40); POTASSIUM 3.4 mmol/L (3.5-5.1)
[2022-06-05] MEDS: POTASSIUM CHLORIDE 10% ELIXIR 20 MEQ/15 ML UDCUP PO PRN ×2 (05:29→10:23)
[2022-06-05] MEDS ORDERED: LEVOTHYROXINE 50 MCG TABLET PO SCH (06:30)
[2022-06-05] MEDS: Linaclotide (Linzess) 145 MCG PO SCH (06:39)
[2022-06-05] MEDS ORDERED: PANTOPRAZOLE 40 MG TAB DR PO SCH (07:30)
[2022-06-05 07:45] VITALS: BP 133/77
[2022-06-05] MEDS: GABAPENTIN 300 MG CAPSULE PO SCH ×2 (08:41→14:44)
[2022-06-05] MEDS: CARVEDILOL 6.25 MG TABLET PO SCH (08:41)
[2022-06-05] MEDS ORDERED: AMLODIPINE 2.5 MG TAB PO SCH (09:00)
[2022-06-05] MEDS ORDERED: CYANOCOBALAMIN (VITAMIN B-12) 1,000 MCG TABLET PO SCH (09:00)
[2022-06-05] MEDS ORDERED: FOLIC ACID 1 MG TABLET PO SCH (09:00)
[2022-06-05 11:21] VITALS: BP 126/58
[2022-06-05 15:20] VITALS: BP 153/79
[2022-06-06] MEDS ORDERED: LEVOTHYROXINE 25 MCG TABLET PO SCH (06:30)
== END 2022-06-05 16:30 | disposition home or self-care (01) | DRG 390 ==
LOC: EDH 08:28 → EDHIP 11:08 → 3CH 13:46
PROVIDERS: ADMIT Internal Medicine Infectious Disease; ATTEND Internal Medicine Infectious Disease
PROC: 0D9670Z Drainage of Stomach with Drainage Device, Via Natural or Artificial Opening (ICD-10-PCS; principal; 2022-06-02)
DX: K56.699 Other intestinal obstruction unspecified as to partial versus complete obstruction (principal); I10 Essential (primary) hypertension; E03.9 Hypothyroidism, unspecified; E78.5 Hyperlipidemia, unspecified; E87.6 Hypokalemia; E83.42 Hypomagnesemia; Z88.6 Allergy status to analgesic agent; Z88.8 Allergy status to other drugs, medicaments and biological substances; Z88.1 Allergy status to other antibiotic agents
CPT/HCPCS: 36415; 74018; 74176; 74250; 80048; 80053; 81001; 83735; 85025; 85027; G0378; J1644; J2405; J3475; J3490; J7042

== ENCOUNTER 2022-10-21 05:42 | Day surgery (SDC) | payer MEDICARE ==
[2022-10-20 10:54] LABS: BASOPHILS % (AUTO) 0.8 % (0.0-5.0); EOSINOPHILS % (AUTO) 2.9 % (0.0-8.0); HEMATOCRIT 40.3 % (36-48); MEAN CORPUSCULAR HEMOGLOBIN 31.1 pg (27.0-33.0); MEAN CORPUSCULAR HGB CONC 33.5 g/dL (32.0-36.0); MEAN CORPUSCULAR VOLUME 92.9 fL (79-99); MONOCYTES % (AUTO) 10.1 % (3.0-13.0); PLATELET COUNT (AUTO) 174 K/uL (130-400); RED BLOOD CELL COUNT(AUTO) 4.34 MIL/uL (4.00-5.50); RED CELL DISTRIBUTION WIDTH 13.1 % (11.0-15.5); WHITE BLOOD COUNT (AUTO) 4.9 K/uL (4.8-10.8)
[2022-10-20 11:02] LABS: CREATININE 0.7 mg/dL (0.5-1.5); POTASSIUM 4.2 mmol/L (3.5-5.1)
[2022-10-20 12:21] VITALS: BP 138/67
[2022-10-21] VITALS (12 sets, daily range): BP systolic 140–162; BP diastolic 66–76
[~2022-10-21] VITALS: Ht 152.4 cm; Wt 54.0 kg
[~2022-10-21 05:42] MED LIST changes: +AMLO-257 PO; -AMLO2.5T4 PO; +BACL5TAB PO; +LEVO25TA54 PO; -LEVO50 PO; +LORA10TA7 PO; +OMEG-148 PO; +ROSU10TA28 PO; -ROSU5TAB12 PO; +SODI1TAB PO; +SODIUM BICARB [NEONATAL] 4.2% 10ML SYG ONE
[2022-10-21] MEDS ORDERED: LACTATED RINGERS 1000ML 1,000 ML IV ONE (06:28)
[2022-10-21] MEDS ORDERED: FENTANYL CITRATE PF 50 MCG/1 ML 2ML VIAL ONE (06:47)
[2022-10-21] MEDS ORDERED: MIDAZOLAM HCL 1 MG/ML 2ML VIAL ONE (06:47)
[2022-10-21] MEDS ORDERED: PROPOFOL 10 MG/ML 20ML VIAL IV ONE (06:47)
[2022-10-21] MEDS ORDERED: IOPAMIDOL 10 ML VIAL ONE (07:45)
== END 2022-10-21 09:30 | disposition home or self-care (01) ==
LOC: DAH 05:42
PROVIDERS: ATTEND Neurological Surgery
DX: M53.3 Sacrococcygeal disorders, not elsewhere classified (principal); Z20.822 Contact with and (suspected) exposure to COVID-19; I10 Essential (primary) hypertension; E66.9 Obesity, unspecified; Z79.899 Other long term (current) drug therapy; Z79.890 Hormone replacement therapy
CPT/HCPCS: 87426; 80048; 85025; 36415; 72202; G0260; A4215 ×3; J7120; J3010; J2250; J2704; J1030; Q9966; A4223; A4222; A4221; A4663; J1040; J3490

== ENCOUNTER 2023-06-13 12:04 | Emergency (ER) | payer MEDICARE ==
[~2023-06-13] VITALS: Ht 152.4 cm; Wt 53.1 kg
[~2023-06-13 12:04] MED LIST changes: -SODIUM BICARB [NEONATAL] 4.2% 10ML SYG ONE
[2023-06-13 12:37] LABS: BASOPHILS % (AUTO) 0.7 % (0.0-5.0); EOSINOPHILS % (AUTO) 3.5 % (0.0-8.0); HEMATOCRIT 41.9 % (36-48); MEAN CORPUSCULAR HEMOGLOBIN 31.3 pg (27.0-33.0); MEAN CORPUSCULAR HGB CONC 33.4 g/dL (32.0-36.0); MEAN CORPUSCULAR VOLUME 93.5 fL (79-99); MONOCYTES % (AUTO) 9.5 % (3.0-13.0); NEUTROPHILS % (AUTO) 50.9 % (40.0-77.0); PLATELET COUNT (AUTO) 167 K/uL (130-400); RED BLOOD CELL COUNT(AUTO) 4.48 MIL/uL (4.00-5.50); RED CELL DISTRIBUTION WIDTH 13.4 % (11.0-15.5); WHITE BLOOD COUNT (AUTO) 5.5 K/uL (4.8-10.8)
[2023-06-13 12:48] LABS: CREATININE 0.7 mg/dL (0.5-1.5); POTASSIUM 4.4 mmol/L (3.5-5.1)
[2023-06-13 12:53] LABS: ALBUMIN 3.7 g/dL (3.5-5.0); TOTAL PROTEIN, SERUM 7.4 g/dL (6.0-8.3)
[2023-06-13 12:57] LABS: APPEARANCE,URINE CLEAR (CLEAR); BILIRUBIN,URINE NEGATIVE (NEGATIVE); COLOR,URINE COLORLESS (YELLOW); GLUCOSE, URINE (UA) NEGATIVE (NEGATIVE); KETONES,URINE NEGATIVE (NEGATIVE); LEUKOCYTE ESTERASE ,URINE NEGATIVE Leu/uL (NEGATIVE); NITRATE,URINE NEGATIVE (NEGATIVE); OCCULT BLOOD,URINE NEGATIVE (NEGATIVE); PROTEIN,URINE NEGATIVE (NEGATIVE); UROBILINOGEN,URINE 0.2 mg/dL (0.2-1.0)
[2023-06-13] MEDS ORDERED: HYDROXYZINE 25 MG TABLET PO ONE (16:00)
[2023-06-13] MEDS ORDERED: HYDR50CA50 PO (17:20)
[2023-06-13 17:34] VITALS: BP 177/71
== END 2023-06-13 18:19 | disposition home or self-care (01) ==
LOC: EDH 12:04
DX: H53.8 Other visual disturbances (principal); F41.9 Anxiety disorder, unspecified; I10 Essential (primary) hypertension; E78.00 Pure hypercholesterolemia, unspecified; Z79.899 Other long term (current) drug therapy; Z90.49 Acquired absence of other specified parts of digestive tract; Z90.710 Acquired absence of both cervix and uterus; Z98.890 Other specified postprocedural states; Z88.0 Allergy status to penicillin; Z88.5 Allergy status to narcotic agent; Z88.6 Allergy status to analgesic agent; Z88.8 Allergy status to other drugs, medicaments and biological substances; Z91.040 Latex allergy status
CPT/HCPCS: 36415; 71045; 80053; 81003; 83735; 84443; 84484; 85025; 93005

== ENCOUNTER 2023-06-28 08:47 | Emergency (ER) | payer MEDICARE ==
[~2023-06-28] VITALS: Ht 152.4 cm; Wt 51.9 kg
[~2023-06-28 08:47] MED LIST changes: +HYDR50CA50 PO
[2023-06-28 09:34] LABS: BASOPHILS % (AUTO) 0.4 % (0.0-5.0); EOSINOPHILS % (AUTO) 1.6 % (0.0-8.0); HEMATOCRIT 39.1 % (36-48); LYMPHOCYTES % (AUTO) 21.5 % (21.0-51.0); MEAN CORPUSCULAR HEMOGLOBIN 31.4 pg (27.0-33.0); MEAN CORPUSCULAR HGB CONC 34.3 g/dL (32.0-36.0); MEAN CORPUSCULAR VOLUME 91.6 fL (79-99); MONOCYTES % (AUTO) 7.8 % (3.0-13.0); NEUTROPHILS % (AUTO) 68.3 % (40.0-77.0); PLATELET COUNT (AUTO) 133 K/uL (130-400); RED BLOOD CELL COUNT(AUTO) 4.27 MIL/uL (4.00-5.50); RED CELL DISTRIBUTION WIDTH 13.5 % (11.0-15.5); WHITE BLOOD COUNT (AUTO) 7.3 K/uL (4.8-10.8)
[2023-06-28 09:45] LABS: CARBON DIOXIDE 25 mmol/L (21-32); CHLORIDE 98 mmol/L (101-111); CREATININE 0.7 mg/dL (0.5-1.5); GLOMERULAR FILTR. RATE CALC 85 mL/min (>90); GLUCOSE,RANDOM 93 mg/dL (70-105); SODIUM SERUM 134 mmol/L (136-145); UREA NITROGEN, BLOOD 6 mg/dL (7-18)
[2023-06-28 09:48] LABS: APPEARANCE,URINE CLEAR (CLEAR); BILIRUBIN,URINE NEGATIVE (NEGATIVE); COLOR,URINE COLORLESS (YELLOW); GLUCOSE, URINE (UA) NEGATIVE (NEGATIVE); KETONES,URINE NEGATIVE (NEGATIVE); LEUKOCYTE ESTERASE ,URINE NEGATIVE Leu/uL (NEGATIVE); NITRATE,URINE NEGATIVE (NEGATIVE); OCCULT BLOOD,URINE NEGATIVE (NEGATIVE); PROTEIN,URINE NEGATIVE (NEGATIVE); UROBILINOGEN,URINE 0.2 mg/dL (0.2-1.0)
[2023-06-28 09:49] LABS: ALANINE AMINOTRANSFERASE 39 U/L (12-78); ALBUMIN 3.5 g/dL (3.5-5.0); ASPARTATE AMINOTRANSFERASE 40 U/L (10-37); TOTAL PROTEIN, SERUM 7.8 g/dL (6.0-8.3)
[2023-06-28] MEDS ORDERED: METOCLOPRAMIDE 10 MG/2 ML VIAL IVP ONE (10:00)
[2023-06-28] MEDS ORDERED: LACTATED RINGERS 1000ML 1,000 ML IV ONE (10:00)
[2023-06-28] MEDS ORDERED: FAMOTIDINE 20MG VIAL IV ONE (10:00)
[2023-06-28] MEDS ORDERED: ACETAMINOPHEN 500 MG TABLET PO ONE (10:00)
[2023-06-28] MEDS ORDERED: IOHEXOL-350 75 ML VIAL IV ONE (10:01)
[2023-06-28 10:31] LABS: LIPASE < 50 U/L (114-286)
[2023-06-28 12:30] VITALS: BP 150/53; PULSE 77; RESP 18; O2SAT 97
[2023-06-28] MEDS ORDERED: METO-296 PO (12:52)
[2023-06-28] MEDS ORDERED: METR-172 PO (12:52)
== END 2023-06-28 13:07 | disposition home or self-care (01) ==
LOC: EDH 08:47
DX: K57.32 Diverticulitis of large intestine without perforation or abscess without bleeding (principal); E78.00 Pure hypercholesterolemia, unspecified; I10 Essential (primary) hypertension; Z79.621 Long term (current) use of calcineurin inhibitor; Z79.899 Other long term (current) drug therapy; Z88.0 Allergy status to penicillin; Z88.1 Allergy status to other antibiotic agents; Z88.5 Allergy status to narcotic agent; Z88.6 Allergy status to analgesic agent; Z88.8 Allergy status to other drugs, medicaments and biological substances; Z90.49 Acquired absence of other specified parts of digestive tract
CPT/HCPCS: 99285; 74176; 96374; 96361; 96375; 84484; 80053; 83690; 85025; 81003; 36415; 93005; J7120; J3490; J2765; Q9967

== ENCOUNTER 2023-07-04 04:30 | Emergency (ER) | payer MEDICARE ==
[~2023-07-04] VITALS: Ht 154.9 cm; Wt 51.7 kg
[~2023-07-04 04:30] MED LIST changes: +METO-296 PO; +METR-172 PO
[2023-07-04 05:05] LABS: BASOPHILS # (AUTO) 0.06 K/uL (0.00-0.20); BASOPHILS % (AUTO) 1.1 % (0.0-5.0); EOSINOPHILS # (AUTO) 0.17 K/uL (0.00-0.70); HEMATOCRIT 40.4 % (36-48); IMMATURE GRANULOCYTE ABSOLUTE 0.02 K/uL (0-1); LYMPHOCYTES % (AUTO) 36.3 % (21.0-51.0); MEAN CORPUSCULAR HGB CONC 35.1 g/dL (32.0-36.0); MEAN CORPUSCULAR VOLUME 88.2 fL (79-99); MONOCYTES # (AUTO) 0.5 K/uL (0.1-1.0); MONOCYTES % (AUTO) 8.4 % (3.0-13.0); NEUTROPHILS # (AUTO) 2.9 K/uL (1.8-7.7); NEUTROPHILS % (AUTO) 50.8 % (40.0-77.0); PLATELET COUNT (AUTO) 284 K/uL (130-400); RED BLOOD CELL COUNT(AUTO) 4.58 MIL/uL (4.00-5.50); RED CELL DISTRIBUTION WIDTH 13.5 % (11.0-15.5); WHITE BLOOD COUNT (AUTO) 5.6 K/uL (4.8-10.8)
[2023-07-04 05:06] LABS: APPEARANCE,URINE CLEAR (CLEAR); BILIRUBIN,URINE NEGATIVE (NEGATIVE); COLOR,URINE COLORLESS (YELLOW); GLUCOSE, URINE (UA) NEGATIVE (NEGATIVE); KETONES,URINE NEGATIVE (NEGATIVE); LEUKOCYTE ESTERASE ,URINE NEGATIVE Leu/uL (NEGATIVE); NITRATE,URINE NEGATIVE (NEGATIVE); OCCULT BLOOD,URINE NEGATIVE (NEGATIVE); PH,URINE 7.5 (5.0-8.0); PROTEIN,URINE 10 mg/dL (NEGATIVE); UROBILINOGEN,URINE 0.2 mg/dL (0.2-1.0)
[2023-07-04 05:11] LABS: ADD UA MICROSCOPIC NO
[2023-07-04 06:04] LABS: INR 0.93 (0.85-1.15); PROTHROMBIN TIME 10.3 SEC (9.6-11.6)
[2023-07-04 06:05] LABS: PARTIAL THROMBOPLASTIN TIME 29.3 SEC (26.3-35.5)
[2023-07-04] MEDS ORDERED: LABETALOL 20MG SYG IV ONE (06:30)
[2023-07-04 06:45] LABS: ALBUMIN 3.6 g/dL (3.5-5.0); BILIRUBIN,TOTAL 0.5 mg/dL (0.2-1.0); CREATININE 0.6 mg/dL (0.5-1.5); MAGNESIUM 1.8 mg/dL (1.80-2.40); POTASSIUM 4.1 mmol/L (3.5-5.1); TOTAL PROTEIN, SERUM 7.9 g/dL (6.0-8.3)
[2023-07-04 08:43] VITALS: BP 142/70; PULSE 67; RESP 18; O2SAT 96
== END 2023-07-04 09:18 | disposition home or self-care (01) ==
LOC: EDH 04:30
DX: E87.1 Hypo-osmolality and hyponatremia (principal); E78.00 Pure hypercholesterolemia, unspecified; I10 Essential (primary) hypertension; Z79.621 Long term (current) use of calcineurin inhibitor; Z79.899 Other long term (current) drug therapy; Z88.0 Allergy status to penicillin; Z88.1 Allergy status to other antibiotic agents; Z88.5 Allergy status to narcotic agent; Z88.6 Allergy status to analgesic agent; Z88.8 Allergy status to other drugs, medicaments and biological substances; Z90.49 Acquired absence of other specified parts of digestive tract
CPT/HCPCS: 36415; 70450; 71045; 80053; 81003; 83735; 84484; 85025; 85610; 85651; 85730; 93005; 96374

== ENCOUNTER 2023-07-23 21:56 | Emergency (ER) | payer MEDICARE ==
[~2023-07-23] VITALS: Ht 154.9 cm; Wt 53.1 kg
[2023-07-24 00:45] LABS: BASOPHILS # (AUTO) 0.04 K/uL (0.00-0.20); BASOPHILS % (AUTO) 0.7 % (0.0-5.0); EOSINOPHILS # (AUTO) 0.21 K/uL (0.00-0.70); EOSINOPHILS % (AUTO) 3.7 % (0.0-8.0); HEMATOCRIT 40.1 % (36-48); IMMATURE GRANULOCYTE ABSOLUTE 0.01 K/uL (0-1); MEAN CORPUSCULAR HEMOGLOBIN 31.1 pg (27.0-33.0); MEAN CORPUSCULAR HGB CONC 33.4 g/dL (32.0-36.0); MONOCYTES # (AUTO) 0.7 K/uL (0.1-1.0); MONOCYTES % (AUTO) 12.6 % (3.0-13.0); NEUTROPHILS # (AUTO) 2.7 K/uL (1.8-7.7); NEUTROPHILS % (AUTO) 47.8 % (40.0-77.0); PLATELET COUNT (AUTO) 193 K/uL (130-400); RED BLOOD CELL COUNT(AUTO) 4.31 MIL/uL (4.00-5.50); RED CELL DISTRIBUTION WIDTH 14.2 % (11.0-15.5); WHITE BLOOD COUNT (AUTO) 5.7 K/uL (4.8-10.8)
[2023-07-24 00:50] LABS: CREATININE 0.6 mg/dL (0.5-1.5); POTASSIUM 4.5 mmol/L (3.5-5.1)
[2023-07-24 00:55] LABS: ALBUMIN 3.6 g/dL (3.5-5.0); BILIRUBIN,TOTAL 0.8 mg/dL (0.2-1.0); TOTAL PROTEIN, SERUM 7.7 g/dL (6.0-8.3)
[2023-07-24 01:34] LABS: APPEARANCE,URINE CLEAR (CLEAR); BILIRUBIN,URINE NEGATIVE (NEGATIVE); COLOR,URINE COLORLESS (YELLOW); GLUCOSE, URINE (UA) NEGATIVE (NEGATIVE); KETONES,URINE NEGATIVE (NEGATIVE); LEUKOCYTE ESTERASE ,URINE NEGATIVE Leu/uL (NEGATIVE); NITRATE,URINE NEGATIVE (NEGATIVE); OCCULT BLOOD,URINE NEGATIVE (NEGATIVE); PH,URINE 6.5 (5.0-8.0); PROTEIN,URINE NEGATIVE (NEGATIVE); UROBILINOGEN,URINE 0.2 mg/dL (0.2-1.0)
[2023-07-24 01:37] LABS: ADD UA MICROSCOPIC NO
[2023-07-24] MEDS ORDERED: CLON0.2T PO (03:22)
[2023-07-24 03:34] VITALS: BP 151/67; PULSE 68; RESP 17; O2SAT 96
== END 2023-07-24 03:36 | disposition home or self-care (01) ==
LOC: EDH 21:56
DX: I10 Essential (primary) hypertension (principal); E78.00 Pure hypercholesterolemia, unspecified; I25.110 Atherosclerotic heart disease of native coronary artery with unstable angina pectoris; Z79.621 Long term (current) use of calcineurin inhibitor; Z79.899 Other long term (current) drug therapy; Z88.0 Allergy status to penicillin; Z88.1 Allergy status to other antibiotic agents; Z88.5 Allergy status to narcotic agent; Z88.6 Allergy status to analgesic agent; Z88.8 Allergy status to other drugs, medicaments and biological substances; Z90.49 Acquired absence of other specified parts of digestive tract
CPT/HCPCS: 36415; 70450; 76770; 80053; 81003; 84484; 85025; 93005; 93880

== ENCOUNTER 2023-07-26 18:45 | Inpatient (IN) | payer MEDICARE ==
[~2023-07-26] VITALS: Ht 154.9 cm; Wt 52.8 kg
[~2023-07-26 18:45] MED LIST changes: +CLON0.2T PO
[2023-07-26] MEDS ORDERED: LOSA25TA41 PO (20:59)
[2023-07-26] MEDS ORDERED: NITROGLYCERIN 0.4 MG SL TAB SL PRN (21:00)
[2023-07-26] MEDS ORDERED: CYCL30DR OP (21:00)
[2023-07-26 21:21] LABS: BASOPHILS # (AUTO) 0.05 K/uL (0.00-0.20); EOSINOPHILS # (AUTO) 0.17 K/uL (0.00-0.70); EOSINOPHILS % (AUTO) 3.3 % (0.0-8.0); HEMATOCRIT 37.4 % (36-48); IMMATURE GRANULOCYTE ABSOLUTE 0.01 K/uL (0-1); LYMPHOCYTES # (AUTO) 2.2 K/uL (1.0-4.8); LYMPHOCYTES % (AUTO) 43.8 % (21.0-51.0); MEAN CORPUSCULAR HEMOGLOBIN 31.4 pg (27.0-33.0); MEAN CORPUSCULAR VOLUME 92.6 fL (79-99); MONOCYTES # (AUTO) 0.6 K/uL (0.1-1.0); MONOCYTES % (AUTO) 11.5 % (3.0-13.0); NEUTROPHILS # (AUTO) 2.1 K/uL (1.8-7.7); NEUTROPHILS % (AUTO) 40.2 % (40.0-77.0); PLATELET COUNT (AUTO) 190 K/uL (130-400); RED BLOOD CELL COUNT(AUTO) 4.04 MIL/uL (4.00-5.50); RED CELL DISTRIBUTION WIDTH 14.2 % (11.0-15.5); WHITE BLOOD COUNT (AUTO) 5.1 K/uL (4.8-10.8)
[2023-07-26] MEDS ORDERED: ONDANSETRON 4MG INJ IVP PRN (21:30)
[2023-07-26] MEDS ORDERED: MORPHINE 2 MG SYG IVP PRN (21:30)
[2023-07-26] MEDS ORDERED: ACETAMINOPHEN 325 MG TAB PO PRN (21:30)
[2023-07-26 21:35] LABS: INR < 0.93 (0.85-1.15); PROTHROMBIN TIME 10.7 SEC (9.6-11.6)
[2023-07-26 21:39] LABS: ALBUMIN 3.6 g/dL (3.5-5.0); CREATININE 0.6 mg/dL (0.5-1.5); POTASSIUM 4.2 mmol/L (3.5-5.1); TOTAL PROTEIN, SERUM 7.3 g/dL (6.0-8.3)
[2023-07-26 21:43] LABS: B-TYPE NATRIURETIC PEPTIDE 26 pg/mL (0-100)
[2023-07-26 21:44] LABS: APPEARANCE,URINE CLEAR (CLEAR); BILIRUBIN,URINE NEGATIVE (NEGATIVE); COLOR,URINE COLORLESS (YELLOW); GLUCOSE, URINE (UA) NEGATIVE (NEGATIVE); KETONES,URINE NEGATIVE (NEGATIVE); LEUKOCYTE ESTERASE ,URINE NEGATIVE Leu/uL (NEGATIVE); NITRATE,URINE NEGATIVE (NEGATIVE); OCCULT BLOOD,URINE NEGATIVE (NEGATIVE); PROTEIN,URINE NEGATIVE (NEGATIVE); UROBILINOGEN,URINE 0.2 mg/dL (0.2-1.0)
[2023-07-26 22:02] LABS: ADD UA MICROSCOPIC YES
[2023-07-26 22:11] LABS: RBC,URINE 0-1 /HPF (0-1)
[2023-07-27 08:15] LABS: BASOPHILS # (AUTO) 0.05 K/uL (0.00-0.20); EOSINOPHILS # (AUTO) 0.18 K/uL (0.00-0.70); EOSINOPHILS % (AUTO) 3.5 % (0.0-8.0); HEMATOCRIT 40.2 % (36-48); IMMATURE GRANULOCYTE ABSOLUTE 0.01 K/uL (0-1); LYMPHOCYTES # (AUTO) 2.1 K/uL (1.0-4.8); LYMPHOCYTES % (AUTO) 40.3 % (21.0-51.0); MEAN CORPUSCULAR HGB CONC 33.8 g/dL (32.0-36.0); MEAN CORPUSCULAR VOLUME 91.6 fL (79-99); MONOCYTES # (AUTO) 0.6 K/uL (0.1-1.0); MONOCYTES % (AUTO) 11.5 % (3.0-13.0); NEUTROPHILS # (AUTO) 2.2 K/uL (1.8-7.7); NEUTROPHILS % (AUTO) 43.5 % (40.0-77.0); PLATELET COUNT (AUTO) 191 K/uL (130-400); RED BLOOD CELL COUNT(AUTO) 4.39 MIL/uL (4.00-5.50); RED CELL DISTRIBUTION WIDTH 14.4 % (11.0-15.5); WHITE BLOOD COUNT (AUTO) 5.1 K/uL (4.8-10.8)
[2023-07-27 08:37] LABS: ALBUMIN 3.5 g/dL (3.5-5.0); BILIRUBIN,TOTAL 1.1 mg/dL (0.2-1.0); CREATININE 0.7 mg/dL (0.5-1.5); MAGNESIUM 1.9 mg/dL (1.80-2.40); PHOSPHORUS 3.9 mg/dL (2.5-4.9); TOTAL PROTEIN, SERUM 7.2 g/dL (6.0-8.3)
[2023-07-27 09:25] VITALS: BP 144/82; PULSE 80; RESP 18
[2023-07-27] MEDS ORDERED: COMPOUND IV REFRIGERATED 1 EACH IVSOLN MISC PRN (11:30)
[2023-07-27 11:54] VITALS: BP 152/76; PULSE 71; RESP 18
[2023-07-27 12:00] VITALS: O2SAT 95
[2023-07-27 16:00] VITALS: BP 148/82; PULSE 70; RESP 20
[2023-07-27 19:35] VITALS: BP 159/76; PULSE 67; RESP 18
[2023-07-27 20:00] VITALS: O2SAT 96
[2023-07-27] MEDS: LOSARTAN 50 MG TABLET PO SCH (20:01)
[2023-07-27] MEDS: ATORVASTATIN 20 MG TABLET PO SCH (20:01)
[2023-07-27] MEDS: CARVEDILOL 6.25 MG TABLET PO SCH (20:01)
[2023-07-28] VITALS (8 sets, daily range): BP systolic 137–196; BP diastolic 73–87; PULSE 63–84; RESP 16–19; O2SAT 94–96
[2023-07-28] MEDS: CARVEDILOL 6.25 MG TABLET PO SCH ×2 (08:37→20:30)
[2023-07-28] MEDS: LOSARTAN 50 MG TABLET PO SCH ×2 (08:37→20:29)
[2023-07-28 11:39] LABS: HEMATOCRIT 40.5 % (36-48); MEAN CORPUSCULAR HEMOGLOBIN 31.6 pg (27.0-33.0); MEAN CORPUSCULAR HGB CONC 34.3 g/dL (32.0-36.0); RED BLOOD CELL COUNT(AUTO) 4.4 MIL/uL (4.00-5.50); RED CELL DISTRIBUTION WIDTH 14.6 % (11.0-15.5); WHITE BLOOD COUNT (AUTO) 4.9 K/uL (4.8-10.8)
[2023-07-28 11:53] LABS: CREATININE 0.6 mg/dL (0.5-1.5); MAGNESIUM 1.8 mg/dL (1.80-2.40)
[2023-07-28] MEDS ORDERED: REGADENOSON 0.4 MG/5 ML PF SYG IVP ONE (12:30)
[2023-07-28] MEDS: ATORVASTATIN 20 MG TABLET PO SCH (20:29)
[2023-07-29 00:26] VITALS: BP 131/68; PULSE 66; RESP 18
[2023-07-29 04:00] VITALS: BP 131/75; PULSE 72; RESP 18
[2023-07-29 05:46] LABS: HEMATOCRIT 39.3 % (36-48); MEAN CORPUSCULAR HGB CONC 34.4 g/dL (32.0-36.0); MEAN CORPUSCULAR VOLUME 93.1 fL (79-99); RED BLOOD CELL COUNT(AUTO) 4.22 MIL/uL (4.00-5.50)
[2023-07-29 06:15] LABS: CREATININE 0.8 mg/dL (0.5-1.5); MAGNESIUM 1.8 mg/dL (1.80-2.40); POTASSIUM 4.4 mmol/L (3.5-5.1)
[2023-07-29 07:30] VITALS: O2SAT 95
[2023-07-29 07:40] VITALS: BP 143/91; PULSE 63; RESP 16
[2023-07-29] MEDS: LOSARTAN 50 MG TABLET PO SCH (08:51)
[2023-07-29] MEDS: CARVEDILOL 6.25 MG TABLET PO SCH (08:52)
[2023-07-29 11:18] VITALS: BP 137/74; PULSE 66; RESP 16
[2023-07-29 16:11] VITALS: BP 184/95; PULSE 68; RESP 16
== END 2023-07-29 17:00 | disposition home or self-care (01) | DRG 303 ==
LOC: EDH 18:45 → EDHIP 21:16 → 3CH 07-27 09:30
PROVIDERS: ADMIT Internal Medicine Infectious Disease; ATTEND Internal Medicine Infectious Disease
PROC: 4A02XM4 Measurement of Cardiac Total Activity, External Approach (ICD-10-PCS; principal; 2023-07-28)
PROC: 3E033HZ Introduction of Radioactive Substance into Peripheral Vein, Percutaneous Approach (ICD-10-PCS; 2023-07-28)
DX: I25.110 Atherosclerotic heart disease of native coronary artery with unstable angina pectoris (principal); E87.1 Hypo-osmolality and hyponatremia; K50.90 Crohn's disease, unspecified, without complications; I16.0 Hypertensive urgency; E03.9 Hypothyroidism, unspecified; E11.9 Type 2 diabetes mellitus without complications; E78.00 Pure hypercholesterolemia, unspecified; I10 Essential (primary) hypertension; I45.10 Unspecified right bundle-branch block; E86.0 Dehydration; F32.A Depression, unspecified; F41.9 Anxiety disorder, unspecified; Z90.49 Acquired absence of other specified parts of digestive tract; Z88.5 Allergy status to narcotic agent; Z88.0 Allergy status to penicillin; Z82.49 Family history of ischemic heart disease and other diseases of the circulatory system; Z90.710 Acquired absence of both cervix and uterus; Z88.8 Allergy status to other drugs, medicaments and biological substances; Z88.6 Allergy status to analgesic agent; Z91.011 Allergy to milk products
CPT/HCPCS: 36415; 71045; 78452; 80048; 80053; 81001; 82948; 83735; 83880; 84100; 84484; 85025; 85027; 85610; 93005; 93017; 93306; 93356; 96374; A9500; G0378; J2785

== ENCOUNTER 2024-07-29 10:39 | Inpatient (IN) | payer MEDICARE ==
[~2024-07-29] VITALS: Ht 152.4 cm; Wt 51.8 kg
[~2024-07-29 10:39] MED LIST changes: +CYCL30DR OP; +LOSA25TA41 PO; -ROSU10TA28 PO; +ROSU10TA72 PO
[2024-07-29 11:30] LABS: BASOPHILS # (AUTO) 0.03 K/uL (0.00-0.20); BASOPHILS % (AUTO) 0.5 % (0.0-5.0); EOSINOPHILS # (AUTO) 0.12 K/uL (0.00-0.70); EOSINOPHILS % (AUTO) 2.1 % (0.0-8.0); HEMATOCRIT 39.4 % (36-48); IMMATURE GRANULOCYTE ABSOLUTE 0.01 K/uL (0-1); MEAN CORPUSCULAR HEMOGLOBIN 31.2 pg (27.0-33.0); MEAN CORPUSCULAR HGB CONC 34.5 g/dL (32.0-36.0); MEAN CORPUSCULAR VOLUME 90.4 fL (79-99); MONOCYTES # (AUTO) 0.7 K/uL (0.1-1.0); MONOCYTES % (AUTO) 11.1 % (3.0-13.0); NEUTROPHILS # (AUTO) 3.1 K/uL (1.8-7.7); NEUTROPHILS % (AUTO) 52.1 % (40.0-77.0); PLATELET COUNT (AUTO) 229 K/uL (130-400); RED BLOOD CELL COUNT(AUTO) 4.36 MIL/uL (4.00-5.50); RED CELL DISTRIBUTION WIDTH 13.2 % (11.0-15.5); WHITE BLOOD COUNT (AUTO) 5.9 K/uL (4.8-10.8)
[2024-07-29 11:34] LABS: APPEARANCE,URINE CLEAR (CLEAR); BILIRUBIN,URINE NEGATIVE (NEGATIVE); COLOR,URINE COLORLESS (YELLOW); GLUCOSE, URINE (UA) NEGATIVE (NEGATIVE); KETONES,URINE NEGATIVE (NEGATIVE); LEUKOCYTE ESTERASE ,URINE 25 Leu/uL (NEGATIVE); NITRATE,URINE NEGATIVE (NEGATIVE); OCCULT BLOOD,URINE NEGATIVE (NEGATIVE); PH,URINE 6.5 (5.0-8.0); PROTEIN,URINE 10 mg/dL (NEGATIVE); UROBILINOGEN,URINE 0.2 mg/dL (0.2-1.0)
[2024-07-29 11:39] LABS: CREATININE 0.7 mg/dL (0.5-1.0); POTASSIUM 4.4 mmol/L (3.5-5.1)
[2024-07-29 11:41] LABS: ADD UA MICROSCOPIC YES
[2024-07-29 11:43] LABS: SQUAMOUS EPITHELIAL CELL,UR RARE /HPF (0-2); WBC,URINE 0-1 /HPF (0-1)
[2024-07-29] MEDS: 0.9%NACL 1000ML 1,000 ML IV ONE (13:46)
[2024-07-29] MEDS ORDERED: acetaMINOPHEN 325 MG TAB PO PRN ×2 (14:00)
[2024-07-29] MEDS ORDERED: ONDANSETRON 4MG INJ IVP PRN (14:00)
[2024-07-29] MEDS: 0.9%NACL 1000ML 1,000 ML IV SCH (15:02)
[2024-07-29 17:30] VITALS: O2SAT 97
[2024-07-29] MEDS ORDERED: LEVO25TA54 PO (18:41)
[2024-07-29] MEDS ORDERED: PANT40TA54 PO (18:41)
[2024-07-29] MEDS ORDERED: LEVO50TA11 PO (18:41)
[2024-07-29] MEDS ORDERED: CARV12.511 PO (18:41)
[2024-07-29] MEDS ORDERED: ROSU40 PO (18:41)
[2024-07-29] MEDS ORDERED: CYCL30DR OP (18:41)
[2024-07-29] MEDS ORDERED: NITR0.4T50 SL (18:41)
[2024-07-29] MEDS ORDERED: GABA-529 PO (18:41)
[2024-07-29] MEDS ORDERED: SODI1TAB PO (18:41)
[2024-07-29] MEDS ORDERED: LATA2.5D14 OP (18:41)
[2024-07-29] MEDS ORDERED: LOSA50TA64 PO (18:41)
[2024-07-29] MEDS ORDERED: OMEG100033 PO (18:41)
[2024-07-29] MEDS ORDERED: CLON1PAT12 TD (18:41)
[2024-07-29] MEDS ORDERED: HYDR25SU38 RC (18:41)
[2024-07-29] MEDS ORDERED: BACL5TAB PO (18:41)
[2024-07-29] MEDS ORDERED: HYDR28CR51 TP (18:41)
[2024-07-29] MEDS ORDERED: CYAN-52 PO (18:41)
[2024-07-29] MEDS ORDERED: LORA10TA7 PO (18:41)
[2024-07-29] MEDS ORDERED: MIRT-22 PO (18:41)
[2024-07-29] MEDS ORDERED: FOLI1 PO (18:41)
[2024-07-29] MEDS ORDERED: WHEA1TAB7 PO (18:41)
[2024-07-29] MEDS ORDERED: METO10TA3 PO (18:41)
[2024-07-29 19:10] VITALS: BP 149/80; PULSE 74; RESP 20; TEMP 98.1
[2024-07-29] MEDS: SODIUM CHLORIDE 1,000 MG TAB PO SCH (19:56)
[2024-07-29 23:05] VITALS: BP 137/80; PULSE 74; RESP 18; TEMP 98
[2024-07-30 03:39] VITALS: BP 140/77; PULSE 66; RESP 19; TEMP 97.6
[2024-07-30 04:17] LABS: BASOPHILS # (AUTO) 0.03 K/uL (0.00-0.20); BASOPHILS % (AUTO) 0.6 % (0.0-5.0); EOSINOPHILS # (AUTO) 0.14 K/uL (0.00-0.70); EOSINOPHILS % (AUTO) 2.9 % (0.0-8.0); HEMATOCRIT 35.5 % (36-48); IMMATURE GRANULOCYTE ABSOLUTE 0.01 K/uL (0-1); LYMPHOCYTES # (AUTO) 2.2 K/uL (1.0-4.8); LYMPHOCYTES % (AUTO) 44.3 % (21.0-51.0); MEAN CORPUSCULAR HEMOGLOBIN 31.8 pg (27.0-33.0); MEAN CORPUSCULAR HGB CONC 34.6 g/dL (32.0-36.0); MEAN CORPUSCULAR VOLUME 91.7 fL (79-99); MONOCYTES # (AUTO) 0.6 K/uL (0.1-1.0); MONOCYTES % (AUTO) 12.5 % (3.0-13.0); NEUTROPHILS # (AUTO) 1.9 K/uL (1.8-7.7); NEUTROPHILS % (AUTO) 39.5 % (40.0-77.0); PLATELET COUNT (AUTO) 224 K/uL (130-400); RED BLOOD CELL COUNT(AUTO) 3.87 MIL/uL (4.00-5.50); RED CELL DISTRIBUTION WIDTH 13.5 % (11.0-15.5); WHITE BLOOD COUNT (AUTO) 4.9 K/uL (4.8-10.8)
[2024-07-30 04:27] LABS: CREATININE 0.7 mg/dL (0.5-1.0); MAGNESIUM 1.9 mg/dL (1.80-2.40); POTASSIUM 4.1 mmol/L (3.5-5.1)
[2024-07-30 08:00] VITALS: BP 138/62; PULSE 77; RESP 14; TEMP 98.8
[2024-07-30] MEDS: ENOXAPARIN SODIUM 40 MG/0.4 ML SYRINGE SQ SCH (09:51)
[2024-07-30 12:00] VITALS: BP 135/74; PULSE 77; RESP 15; TEMP 99.1
[2024-07-30] MEDS ORDERED: CLONIDINE 0.1 MG/24 HR TD PRN (12:00)
[2024-07-30] MEDS ORDERED: NITROGLYCERIN 0.4 MG SL TAB SL PRN (12:00)
[2024-07-30] MEDS ORDERED: BACLOFEN 10 MG TABLET PO PRN (12:00)
[2024-07-30 16:00] VITALS: BP 163/89; PULSE 72; RESP 14; TEMP 98.2
[2024-07-30] MEDS: FISH OIL 1000 MG/CAP PO SCH (19:59)
[2024-07-30] MEDS: LoSARTan 50 MG TABLET PO SCH (19:59)
[2024-07-30] MEDS: MIRTAZAPINE 15 MG TABLET PO SCH (19:59)
[2024-07-30 20:00] VITALS: BP 179/78; PULSE 69; RESP 18; TEMP 98.1
[2024-07-30] MEDS: GABApentin 100 MG CAPSULE PO SCH (20:00)
[2024-07-30] MEDS: carVEDIlol 12.5 MG TABLET PO SCH (20:00)
[2024-07-31] VITALS: BP 172/77; PULSE 70; RESP 18; TEMP 98.1
[2024-07-31 04:00] VITALS: BP 185/79; PULSE 64; RESP 18; TEMP 98.1
[2024-07-31 05:12] LABS: HEMATOCRIT 36.2 % (36-48); MEAN CORPUSCULAR HEMOGLOBIN 31.6 pg (27.0-33.0); MEAN CORPUSCULAR HGB CONC 33.4 g/dL (32.0-36.0); MEAN CORPUSCULAR VOLUME 94.5 fL (79-99); RED BLOOD CELL COUNT(AUTO) 3.83 MIL/uL (4.00-5.50); RED CELL DISTRIBUTION WIDTH 13.9 % (11.0-15.5); WHITE BLOOD COUNT (AUTO) 5.2 K/uL (4.8-10.8)
[2024-07-31 05:29] LABS: CREATININE 0.6 mg/dL (0.5-1.0); MAGNESIUM 1.8 mg/dL (1.80-2.40); POTASSIUM 3.7 mmol/L (3.5-5.1)
[2024-07-31] MEDS: levoTHYROxine 25 MCG TABLET PO SCH (06:04)
[2024-07-31] MEDS: PANTOPRAZOLE 40 MG TAB DR PO SCH (06:04)
[2024-07-31 08:00] VITALS: BP 174/77; PULSE 77; RESP 20; TEMP 97.9
[2024-07-31] MEDS: LORATAdine 10 mg 10 MG TABLET PO SCH (08:12)
[2024-07-31 12:00] VITALS: BP 131/75; PULSE 69; RESP 20; TEMP 97.8
[2024-08-01] MEDS ORDERED: levoTHYROxine 50 MCG TABLET PO SCH (06:30)
[2024-08-01] MEDS ORDERED: FOLic ACID 1 MG TABLET PO SCH (09:00)
[2024-08-01] MEDS ORDERED: CYANOCOBALAMIN (VITAMIN B-12) 1,000 MCG TABLET PO SCH (09:00)
== END 2024-07-31 14:00 | disposition home or self-care (01) | DRG 641 ==
LOC: EDH 10:39 → EDHIP 13:36 → 4BH 17:00
PROVIDERS: ADMIT Internal Medicine Infectious Disease; ATTEND Internal Medicine Infectious Disease
DX: E87.1 Hypo-osmolality and hyponatremia (principal); R53.81 Other malaise; F32.A Depression, unspecified; E03.9 Hypothyroidism, unspecified; I10 Essential (primary) hypertension; M81.0 Age-related osteoporosis without current pathological fracture; E78.00 Pure hypercholesterolemia, unspecified; Z88.1 Allergy status to other antibiotic agents; Z88.5 Allergy status to narcotic agent; Z88.0 Allergy status to penicillin; Z88.8 Allergy status to other drugs, medicaments and biological substances; Z90.710 Acquired absence of both cervix and uterus; Z90.49 Acquired absence of other specified parts of digestive tract; Z82.49 Family history of ischemic heart disease and other diseases of the circulatory system; Z82.3 Family history of stroke; Z87.19 Personal history of other diseases of the digestive system; Z79.899 Other long term (current) drug therapy
CPT/HCPCS: 36415; 71045; 80048; 81001; 82948; 83735; 83930; 83935; 84300; 84484; 85025; 85027; 93005; G0378; J1650

== ENCOUNTER 2025-01-23 20:22 | Emergency (ER) | payer MEDICARE ==
[~2025-01-23] VITALS: Ht 149.9 cm; Wt 52.2 kg
[~2025-01-23 20:22] MED LIST changes: -ALPR0.5T8 PO; -AMLO-257 PO; +CARV12.511 PO; -CARV6.25 PO; -CLON0.2T PO; +CLON1PAT12 TD; +CYAN-52 PO; -CYAN100099 PO; -CYCL30DR OU; -ERGO500014 PO; +FOLI1 PO; -FOLI1TAB15 PO; +GABA-529 PO; -GABA-531 PO; +HYDR25SU38 RC; +HYDR28CR51 TP; -HYDR50CA50 PO; +LATA2.5D14 OP; +LEVO50TA11 PO; -LEVO50TA4 PO; -LINA145C PO; -LOSA25TA41 PO; +LOSA50TA64 PO; -METO-296 PO; +METO10TA3 PO; -METR-172 PO; -MIRA50TA PO; +MIRT-22 PO; -NITR0.4T SL; +NITR0.4T50 SL; -OMEG-148 PO; +OMEG100033 PO; -POTA-193 PO; -ROSU10TA72 PO; +ROSU40 PO; +WHEA1TAB7 PO
--- NOTE | 2025-01-23 20:34 | ERN ---
General Chief Complaint: Weakness Stated Complaint: GENERAL BODY WEAKNESS Time Seen by MD: 20:25 Source: patient, EMS History of Present Illness Initial Comments Patient is a 84-year-old female coming in to be evaluated for generalized body weakness. Per patient she usually presents with a hyponatremia secondary to bladder condition. Patient states that she recently had a bladder surgery. Allergies: Coded Allergies: aspirin (Unverified Allergy, Intermediate, rash, 11/20/16) Penicillins (Unverified Allergy, Unknown, 11/20/16) codeine (Unverified Allergy, Unknown, 11/20/16) iodine (Unverified Allergy, Unknown, rash, 11/20/16) lactulose (Unverified Allergy, Unknown, 11/20/16) levofloxacin (Unverified Allergy, Unknown, 11/20/16) Home Meds Reported Medications Metoclopramide HCl (Metoclopramide HCl) 10 Mg Tablet, 10 MG PO AD, TAB 07/29/24 Mirtazapine (Mirtazapine) 15 Mg Tablet, 15 MG PO HS, TAB 07/29/24 Sodium Cl/Potassium Chloride (Thermotabs Tablet) 287 Mg-180 Mg-15 Mg Tablet, 1 EACH PO AD, TAB 07/29/24 Latanoprost (Latanoprost) 0.005 % Drops, 2.5 ML OP AD, DROP 07/29/24 Wheat Dextrin (Benefiber) 1 Gram Tab.chew, 1 GM PO AD, TAB.CHEW 07/29/24 Cyanocobalamin (Vitamin B-12) (Vitamin B-12) 1,000 Mcg Tablet, 1000 MCG PO QODAY, TAB 07/29/24 Hydrocortisone Acetate (Anusol-Hc) 25 Mg Supp.rect, 25 MG RC DAILY, EA 07/29/24 [place]-3/Dha/Epa/Fish Oil (Fish Oil 1,000 mg Softgel) 1,000 Mg (120 Mg-180 Mg) Capsule, 1000 MG PO BID, CAP 07/29/24 Hydrocortisone (Hydrocortisone 2.5% 28Gm) 2.5 % Cream.gm., 28 GM TP DAILY PRN for ITCHING, APPL 07/29/24 Loratadine (Loratadine) 10 Mg Tablet, 10 MG PO AM, TAB 07/29/24 Baclofen (Baclofen) 5 Mg Tablet, 5 MG PO AD PRN for PAIN, TAB 07/29/24 Cyclosporine (Restasis) 0.05 % Droperette, 1 EACH OP BID PRN for DRY EYES, DROP 07/29/24 Clonidine (Clonidine) 0.1 Mg/24 Hour Patch.tdwk, 1 EACH TD QIDP PRN for IF SBP GREATER THAN 160 07/29/24 Nitroglycerin (Nitroglycerin) 0.4 Mg Tab.subl, 0.4 MG SL DAILY PRN for CHEST PAIN, TAB.SL 07/29/24 Carvedilol (Carvedilol) 12.5 Mg Tablet, 12.5 MG PO BID, TAB 07/29/24 Losartan Potassium (Losartan Potassium) 50 Mg Tablet, 50 MG PO BID, TAB 07/29/24 Pantoprazole Sodium (Pantoprazole Sodium) 40 Mg Tablet.dr, 40 MG PO AM, TAB 07/29/24 Rosuvastatin Calcium (Crestor) 40 Mg Tab, 5 MG PO AM, TAB 07/29/24 Levothyroxine Sodium (Levothyroxine Sodium) 25 Mcg Tablet, 25 MCG PO QODAY, TAB 07/29/24 Gabapentin (Gabapentin) 100 Mg Capsule, 100 MG PO HS, CAP 07/29/24 Levothyroxine Sodium (Levothyroxine Sodium) 50 Mcg Tablet, 50 MCG PO QODAY, TAB 07/29/24 Folic Acid (Folvite) 1 Mg Tab, 1 MG PO QODAY, TAB 07/29/24 Past Medical History Past Medical History: High Cholesterol, Hypertension Medical History Other: GLAUCOMA, THYROID DZ, LOW SODIUM Past Surgical History: Hysterectomy, Cholecystectomy, Surgical History Other: COLON RESECTION, TRANSURETHERAL RESECTION OF A BLADDER TUMOR Family History Family History: HTN Social History Social History: Negative, Lives with family, Other Female( History) History: Not Applicable ROS Dictation CONSTITUTIONAL: No chills, no fever, no weakness, no diaphoresis, no malaise. HEAD/FACE: No signs of trauma. EENT: No eye pain, no blurred vision, no tearing, no double vision, no ear pain, no ear discharge, no nose pain, no nasal congestion, no throat pain, no throat swelling, no mouth pain. RESPIRATORY: No cough, no orthopnea, no SOB, no stridor, no wheezing. CARDIOVASCULAR: No chest pain, no edema, no palpitations, no syncope. GASTROINTESTINAL/ABDOMINAL: No abdominal pain, no constipation, no diarrhea, no nausea, no vomiting. GENITOURINARY: No abnormal discharge, no dysuria, no frequent urination, no hematuria. No complaints of pain in the genitals. MUSCULOSKELETAL: No back pain, no gout, no joint pain, no joint swelling, no muscle pain, no muscle stiffness, no neck pain. INTEGUMENTARY: No change in color, no change in hair/nails, no dryness, no lesion, no lumps, no rash. NEUROLOGICAL/PSYCH: No anxiety, not depressed, no emotional problem, no headache, no numbness, no pre-existing deficit, no history of seizures, no tr emors, no weakness. HEMATOLOGIC/LYMPHATIC: Not anemic, no history of blood clots, no apparent bleeding, no bruising, glands not swollen. All Systems Negative, Except as Noted. Physical Exam Physical Exam Dictation VITAL SIGNS: Reviewed. GENERAL APPEARANCE: Alert, oriented x3, no acute distress, obese. HEAD AND FACE: Non-traumatic. EYES: PERRL, pink conjunctivas, eyelid no trauma, anterior chamber clear. EARS: Pinnas intact and no signs of trauma or erythema. Ear canals clear and no discharge. TMs no erythema. NOSE: No discharge, no bleeding. OROPHARYNX: Mouth normal, teeth no caries, tongue pink. Pharynx clear, no erythema. Tonsils no exudates, no abscesses noted. Mucous membrane moist. NECK: Supple, non-tender, no thyromegaly, no masses, no JVD, no bruits. BREAST: Deferred. CHEST: No tenderness, no crepitus, no paradoxical movement, no retractions. LUNGS: Clear, well-ventilated, symmetric, no rales, no wheezing, no rhonchi, no stridor, good breath sounds bilaterally. HEART: Regular rate, regular rhythm, no murmur, no gallops. VASCULAR: No peripheral edema. ABDOMEN: Soft, positive bowel sounds, nondistended, no guarding, nontender, no rebound, no masses no hepatomegaly, no splenomegaly, no Gonzalez's sign, no hernias. RECTAL: Deferred. GENITAL: Deferred. NEUROLOGICAL: Normal speech, gross motor function intact, gross sensory function intact. MUSCULOSKELETAL: Neck nontender, full range of motion, back nontender, full range of motion. EXTREMITIES: Nontender, full range of motion. SKIN: Color pink, dry, no turgor, no rash, no lacerations, no abrasions, no contusions. LYMPHATICS: Deferred. Results Laboratory and Microbiology Lab and Micro Result Laboratory Tests Test 01/23/25 20:51 01/23/25 21:25 Urine Color COLORLESS (YELLOW) Urine Appearance CLEAR (CLEAR) Urine pH 7.0 (5.0-8.0) Urine Specific [place] 1.004 (1.001-1.031) Urine Protein NEGATIVE mg/dL (NEGATIVE) Urine Glucose (UA) NEGATIVE mg/dL (NEGATIVE) Urine Ketones NEGATIVE mg/dL (NEGATIVE) Urine Occult Blood +- (TRACE) (NEGATIVE) H Urine Nitrate NEGATIVE (NEGATIVE) Urine Bilirubin NEGATIVE mg/dL (NEGATIVE) Urine Urobilinogen 0.2 mg/dL (0.2-1.0) Urine Leukocyte Esterase NEGATIVE [place]/uL Urine RBC 6-10 /HPF (0-1) H Urine WBC 2-5 /HPF (0-1) H Urine Bacteria None /HPF (None Seen) White Blood Count 6.7 K/uL (4.8-10.8) Red Blood Count 4.36 MIL/uL (4.00-5.50) Hemoglobin 13.5 g/dL (12.0-16.0) Hematocrit 40.5 % (36-48) Mean Corpuscular Volume 92.9 fL (79-99) Mean Corpuscular Hemoglobin 31.0 pg (27.0-33.0) Mean Corpuscular Hemoglobin Concent 33.3 g/dL (32.0-36.0) Red Cell Distribution Width 13.4 % (11.0-15.5) Platelet Count 209 K/uL (130-400) Mean Platelet Volume 9.4 fL (7.5-10.5) Immature Granulocyte % (Auto) 0.5 % (0-1) Neutrophils (%) (Auto) 55.7 % (40.0-77.0) Lymphocytes (%) (Auto) 30.8 % (21.0-51.0) Monocytes (%) (Auto) 10.1 % (3.0-13.0) Eosinophils (%) (Auto) 2.3 % (0.0-8.0) Basophils (%) (Auto) 0.6 % (0.0-5.0) Neutrophils # (Auto) 3.7 K/uL (1.8-7.7) Lymphocytes # (Auto) 2.1 K/uL (1.0-4.8) Monocytes # (Auto) 0.7 K/uL (0.1-1.0) Eosinophils # (Auto) 0.15 K/uL (0.00-0.70) Basophils # (Auto) 0.04 K/uL (0.00-0.20) Absolute Immature Granulocyte (auto 0.03 K/uL (0-1) Nucleated Red Blood Cells 0.0 % (0.0-0.19) Prothrombin Time 10.1 SEC (9.6-11.6) Prothromb Time International Ratio 0.95 (0.85-1.15) Activated Partial Thromboplast Time 27.1 SEC (26.3-35.5) Sodium Level 139 mmol/L (136-145) Potassium Level 4.2 mmol/L (3.5-5.1) Chloride Level 103 mmol/L (101-111) Carbon Dioxide Level 29 mmol/L (21-32) Blood Urea Nitrogen 13 mg/dL (7-18) Creatinine 0.8 mg/dL (0.5-1.0) Glomerular Filtration Rate Calc 72 mL/min (>90) Random Glucose 112 mg/dL (70-105) H Total Calcium 9.6 mg/dL (8.5-10.1) Magnesium Level 2.00 mg/dL (1.80-2.40) Total Creatine Kinase 71 U/L (21-232) Troponin I High Sensitivity 20 ng/L (4-50) B-Type Natriuretic Peptide 10 pg/mL (0-100) Labs Reviewed?: Yes EKG/XRAY/US/CT/MRI EKG Comment 03/19/2025 time 8:59 p.m. Ventricular rate 67 Sinus rhythm [place] [address] wave elevation or depression MDM MDM: Differential diagnosis: Dehydration, wellness exam, hyponatremia, Patient is a an 84-year-old female coming in to be evaluated for weakness. Patient states that she had a bladder surgery and had a Abraham placed since then she has been feeling dry mouth at night. She states that before EMS picked her up she started having same presentation she drank some Pedialyte and states he feels much better here. Laboratory workup negative for acute findings. I advised her to continue taking Pedialyte as indicated by her PCP. Patient will be discharged in stable condition I also advised her to stop taking her Macrobid since she states that this weakness sensation presented after taking her antibiotics. ED Course Orders Procedure Category Date Status Time Cbc With Differential LAB 01/23/25 Complete 20:29 Prothrombin Time With LAB 01/23/25 Complete INR 20:29 B-Type Natriuretic LAB 01/23/25 Complete Peptide 20:29 Chest 1vw RAD 01/23/25 Taken 20:29 12 Lead Ekg Tracing- EKG 01/23/25 Logged Technical 20:29 Magnesium LAB 01/23/25 Complete 20:29 Creatine Kinase, Total LAB 01/23/25 Complete 20:29 Troponin I High LAB 01/23/25 Complete Sensitivity 20:29 Urinalysis Profile LAB 01/23/25 Complete 20:29 Partial LAB 01/23/25 Complete Thromboplastin Time 20:29 Basic Metabolic Panel LAB 01/23/25 Complete 20:29 0.9%Nacl 1000ml (Ns PHA 01/23/25 Complete 1000ml) 22:30 Current Medications Medications (Trade) Dose Ordered Sig/Sergio Route PRN Reason Start Time Stop Time Status Last Admin Dose Admin Sodium Chloride 1,000 ml @ 0 mls/hr ONCE ONCE IV 01/23/25 22:30 01/23/25 22:31 DC Vital Signs Date Time Temp Pulse Resp B/P (MAP) Pulse Ox O2 Delivery O2 Flow Rate FiO2 01/23/25 21:17 98.1 75 16 182/74 97 Room Air* 0 21 01/23/25 20:23 98.1 75 16 182/74 97 Room Air 0 DX & DISP Disposition: Discharge Departure Impression: Primary Impression: Dehydration Condition: Stable Additional Instructions: FOLLOW-UP WITH PRIMARY CARE PROVIDER IN 1 TO 2 DAYS. TAKE MEDICATIONS DIRECTED HERE IN THE EMERGENCY ROOM. OKAY TO CONTINUE HOME MEDICATIONS UNLESS OTHERWISE DISCUSSED DURING YOUR VISIT IN THE EMERGENCY ROOM TODAY. RETURN TO YOUR NEAREST EMERGENCY ROOM IF SYMPTOMS WORSEN OR IF THERE IS NO IMPROVEMENT. CALL 911 IF YOU NEED IMMEDIATE ASSISTANCE. TAKE TYLENOL [id number] NEEDED AND IF NO CONTRAINDICATIONS ARE PRESENT. INCREASE ORAL HYDRATION. A WOUND CULTURE OR URINE CULTURE WAS ORDERED HERE IN THE EMERGENCY ROOM DEPARTMENT PLEASE FOLLOW-UP WITH PRIMARY CARE PROVIDER AND ADVISE THEM TO GET REPEAT PORTS FROM OUR FACILITY. IF YOU HAD ANY JEAN-PAUL WRAP/SPLINTS THAT WERE APPLIED HERE, PLEASE DO NOT REMOVE THEM UNTIL YOU SEE YOUR PRIMARY CARE OR SPECIALTY. Referrals: Referrals: CHETAN DE MD (PCP) Time of Disposition: 22:38 KAIT JEFF MD Jan 23, 2025 20:34
[2025-01-23 21:12] LABS: APPEARANCE,URINE CLEAR (CLEAR); BILIRUBIN,URINE NEGATIVE (NEGATIVE); COLOR,URINE COLORLESS (YELLOW); GLUCOSE, URINE (UA) NEGATIVE (NEGATIVE); KETONES,URINE NEGATIVE (NEGATIVE); LEUKOCYTE ESTERASE ,URINE NEGATIVE Leu/uL (NEGATIVE); NITRATE,URINE NEGATIVE (NEGATIVE); PROTEIN,URINE NEGATIVE (NEGATIVE); UROBILINOGEN,URINE 0.2 mg/dL (0.2-1.0)
[2025-01-23 21:16] LABS: ADD UA MICROSCOPIC YES
[2025-01-23 21:37] LABS: BASOPHILS # (AUTO) 0.04 K/uL (0.00-0.20); BASOPHILS % (AUTO) 0.6 % (0.0-5.0); EOSINOPHILS # (AUTO) 0.15 K/uL (0.00-0.70); EOSINOPHILS % (AUTO) 2.3 % (0.0-8.0); HEMATOCRIT 40.5 % (36-48); IMMATURE GRANULOCYTE ABSOLUTE 0.03 K/uL (0-1); LYMPHOCYTES # (AUTO) 2.1 K/uL (1.0-4.8); LYMPHOCYTES % (AUTO) 30.8 % (21.0-51.0); MEAN CORPUSCULAR HGB CONC 33.3 g/dL (32.0-36.0); MEAN CORPUSCULAR VOLUME 92.9 fL (79-99); MONOCYTES # (AUTO) 0.7 K/uL (0.1-1.0); MONOCYTES % (AUTO) 10.1 % (3.0-13.0); NEUTROPHILS # (AUTO) 3.7 K/uL (1.8-7.7); NEUTROPHILS % (AUTO) 55.7 % (40.0-77.0); PLATELET COUNT (AUTO) 209 K/uL (130-400); RED BLOOD CELL COUNT(AUTO) 4.36 MIL/uL (4.00-5.50); RED CELL DISTRIBUTION WIDTH 13.4 % (11.0-15.5); WHITE BLOOD COUNT (AUTO) 6.7 K/uL (4.8-10.8)
[2025-01-23 21:45] LABS: CREATININE 0.8 mg/dL (0.5-1.0); INR 0.95 (0.85-1.15); POTASSIUM 4.2 mmol/L (3.5-5.1); PROTHROMBIN TIME 10.1 SEC (9.6-11.6)
[2025-01-23 21:46] LABS: PARTIAL THROMBOPLASTIN TIME 27.1 SEC (26.3-35.5)
[2025-01-23 21:58] LABS: B-TYPE NATRIURETIC PEPTIDE 10 pg/mL (0-100)
[2025-01-23] MEDS: 0.9%NACL 1000ML 1,000 ML IV ONE (22:42)
[2025-01-23 22:43] VITALS: BP 162/70; PULSE 72; RESP 16; TEMP 98.1; O2SAT 97
--- NOTE | 2025-01-23 23:12 | HMCIMG ---
CHEST 1VW HISTORY: Weakness COMPARISON: 07/29/2024 FINDINGS: A frontal projection of the chest was obtained. No acute pulmonary infiltrates is seen. The heart is normal in size. Degenerative changes are seen. No evidence of aortic calcification is seen. IMPRESSION: 1. No acute pulmonary infiltrate is seen.
--- NOTE | 2025-01-24 06:56 | EKG ---
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
== END 2025-01-23 22:44 | disposition home or self-care (01) ==
LOC: EDH 20:22
DX: E86.0 Dehydration (principal); E78.00 Pure hypercholesterolemia, unspecified; I25.110 Atherosclerotic heart disease of native coronary artery with unstable angina pectoris; I10 Essential (primary) hypertension; Z79.899 Other long term (current) drug therapy; Z88.0 Allergy status to penicillin; Z88.1 Allergy status to other antibiotic agents; Z88.5 Allergy status to narcotic agent; Z88.6 Allergy status to analgesic agent; Z88.8 Allergy status to other drugs, medicaments and biological substances; Z90.49 Acquired absence of other specified parts of digestive tract; Z90.710 Acquired absence of both cervix and uterus; Z91.041 Radiographic dye allergy status; Z86.2 Personal history of diseases of the blood and blood-forming organs and certain disorders involving the immune mechanism
CPT/HCPCS: 36415; 71045; 80048; 81001; 82550; 83735; 83880; 84484; 85025; 85610; 85730; 93005; 99285